=== PATIENT | female | born 1940 | race American Indian/Alaskan Native ===

== ENCOUNTER 2020-08-23 08:54 | Inpatient (IN) | payer MEDICARE ==
[2020-08-23 10:45] LABS: Basophils # (Auto) 0.1 K/mm3 (0.0-0.1); Basophils % (Auto) 0.8 % (0.0-1.8); Hemoglobin 10.5 gm/dl (10.1-14.3); Lymphocytes # (Auto) 1.2 K/mm3 (1.2-5.4); Lymphocytes % (Auto) 9.2 % (13.4-35.0); Mean Corpuscular HGB Conc 33 % (30-34); Mean Corpuscular Volume 91 fl (79-97); Monocytes # (Auto) 0.9 K/mm3 (0.0-0.8); Monocytes % (Auto) 6.8 % (0.0-7.3); Platelet Count 276 K/mm3 (140-440); Red Blood Count 3.52 M/mm3 (3.65-5.03); Red Cell Distribution Width 14.7 % (13.2-15.2)
[2020-08-23 10:49] LABS: Alanine Aminotransferase 13 units/L (7-56); Albumin 3.4 g/dL (3.9-5); BUN/Creatinine Ratio 19; Blood Urea Nitrogen 19 mg/dL (7-17); Calcium 8.5 mg/dL (8.4-10.2); Hemolysis Index 9
[2020-08-23 11:00] LABS: HDL Cholesterol 48 mg/dL (40-59); LDL Cholesterol,Direct 62 mg/dL (50-130)
--- NOTE | 2020-08-23 11:23 | Cat Scan Report ---
CT HEAD WITHOUT CONTRAST INDICATION / CLINICAL INFORMATION: fall altered mental status. TECHNIQUE: Axial imaging performed from the skull apex through the skull base without the use of cont rast. Sagittal and coronal reformatted images. All CT scans at this location are performed using CT dose reduction for ALARA by means of automated exposure control. COMPARISON: None available. FINDINGS: CEREBRAL PARENCHYMA: Mild diffuse volume loss and mild to moderate chronic white matter changes are n oted. No acute parenchymal abnormality is appreciated. Chronic focal infarct in the right subinsular region measures 2.2 x 0.7 cm. Chronic infarct in the medial right occipital lobe measures 3.0 x 1.7 c m. HEMORRHAGE: None. EXTRA-AXIAL SPACES: Normal in size and morphology for the patient's age. VENTRICULAR SYSTEM: Normal in size and morphology for the patient's age. MIDLINE SHIFT OR HERNIATION: None. CEREBELLUM / BRAINSTEM: No significant abnormality. CALVARIUM: No significant abnormality. ORBITS: Normal as visualized. PARANASAL SINUSES / MASTOID AIR CELLS: Normal as visualized. SOFT TISSUES of HEAD: No significant abnormality. ADDITIONAL FINDINGS: None. IMPRESSION: No acute intracranial abnormality. Volume loss and chronic white matter changes. 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 Signer Name: Med Pedersen Jr, MD Signed: 08/23/2020 11:19 AM Workstation Name: [id number]
[2020-08-23] MEDS ORDERED: ACETAMINOPHEN 325 MG TAB ONE (11:35)
[2020-08-23] MEDS ORDERED: ACETAMINOPHEN 325 MG TAB PO ONE (11:41)
--- NOTE | 2020-08-23 11:47 | XRay Report ---
CHEST 1 VIEW INDICATION: fever hypoxia. COMPARISON: None FINDINGS: Support devices: None. Heart: Borderline to mild cardiomegaly Lungs/Pleura: Mild airspace opacity is identified throughout the right lung and left lower lobe. This could represent infiltrates or congestive changes. No large pleural effusion or pneumothorax. Additional findings: None. IMPRESSION: Borderline to mild cardiomegaly. Bilateral congestive changes or infiltrates as described. Viral inf ection is not excluded. Signer Name: Med Pedersen Jr, MD Signed: 08/23/2020 11:42 AM Workstation Name: [id number]
[2020-08-23 11:53] LABS: Bacteria,Urine 1+ /HPF (Negative); Bilirubin,Urine NEG (Negative); Blood,Urine NEG (Negative); Color,Urine Yellow (Yellow); Mucus,Urine FEW /HPF
--- NOTE | 2020-08-23 11:56 | Cat Scan Report ---
CT CERVICAL SPINE WITHOUT CONTRAST INDICATION / CLINICAL INFORMATION: Patient fell sustaining neck injury. Altered mental status. TECHNIQUE: Axial CT images were obtained through the cervical spine. Sagittal and coronal reformatted images wer e produced. All CT scans at this location are performed using CT dose reduction for ALARA by means of automated exposure control. COMPARISON: None available. FINDINGS: ALIGNMENT: There is a mild rightward curvature of the cervical spine without definite scoliosis. Loss of the normal cervical lordosis is noted. There is no indication of traumatic subluxation. VERTEBRAE: No evidence of fracture. Prominent anterior osteophyte formation is observed at the C5, C6 and C7 vertebrae. Milder posterior osteophyte formation is also observed at the same levels. DISC SPACES: Loss of disc height is demonstrated at the C5-6 and C6-7 levels. DEGENERATIVE CHANGES: Mild loss of disc height, anterior osteophyte formation, mild posterior osteoph yte formation and right worse than left uncovertebral arthropathy are observed at the C5-6 and C6-7 l evels. Bilateral neuroforaminal narrowing is seen at these locations. Central spinal canal is adequat kathryn maintained. CRANIOCERVICAL JUNCTION:No significant abnormality. SPINAL CANAL: Central spinal canal is adequately maintained throughout. PARASPINAL SOFT TISSUES: No significant abnormality. ADDITIONAL FINDINGS: None. LUNG APICES: Lung apices are largely excluded from this study. IMPRESSION: 1. No indication of fracture or traumatic subluxation. 2. Degenerative changes at C5-6 and C6-7 levels as described above. Signer Name: Bhupendra Fuller MD Signed: 08/23/2020 11:52 AM Workstation Name: [email or web address]
--- NOTE | 2020-08-23 12:16 | Cat Scan Report ---
CT CHEST WITHOUT CONTRAST INDICATION / CLINICAL INFORMATION: fever hypoxia. TECHNIQUE: Axial CT images were obtained through the chest without contrast. All CT scans at this location are p erformed using CT dose reduction for ALARA by means of automated exposure control. COMPARISON: Chest radiograph from same day. FINDINGS: THORACIC AORTA: Mild atherosclerotic calcification without acute abnormality. HEART: The heart is enlarged. No pericardial effusion. Coronary artery calcifications. MEDIASTINUM / OBDULIO: Evaluation for hilar adenopathy is limited without venous contrast. Scattered mil dly enlarged mediastinal lymph nodes are likely reactive. LUNGS/PLEURA: There are small bilateral pleural effusions with dense bilateral airspace consolidation s, slightly more pronounced on the right. There is diffuse interlobular septal thickening. No pneumot horax. ADDITIONAL CHEST FINDINGS: None. UPPER ABDOMEN: No significant abnormality. SKELETAL SYSTEM: Incidentally, there is a 2.3 x 1.5 cm geographic lytic lesion within the anterior pa rasymphyseal mandible, just to the left of midline. This is incompletely imaged on current study. IMPRESSION: 1. Findings most compatible with CHF/fluid overload with pulmonary edema and small bilateral pleural effusions. Superimposed pneumonia is unable to be excluded. 2. Incidentally noted 2.3 cm lytic lesion within the anterior mandible. This is incompletely imaged a nd may represent a dentigerous cyst. Recommend comparison to outside imaging to assess stability of t his finding. If no prior imaging is available for comparison, consider further evaluation with MRI. Signer Name: Yousif Dorsey MD Signed: 08/23/2020 12:11 PM Workstation Name: [id number]
--- NOTE | 2020-08-23 12:53 | Emergency Department Report ---
ED Altered Mental Status HPI - General Chief Complaint: Altered Mental Status Stated Complaint: STROKE PUI?: Yes Time Seen by Provider: 08/23/20 09:21 Source: family (daughter bedside), EMS, old records reviewed Mode of arrival: Stretcher Limitations: Other - History of Present Illness Initial Comments: CC: altered mental status HPI: This is a 80 yo female with hx of dementia, TIA, breast cancer in remission who presents with low oxygen saturation at home, as well as, altered mental status. On Friday, 4 days prior, patient fell in shower. No notable head trauma according to daughter who is bedside. Yesterday, patient has low grade fever and work of breathing. Home pulse oximetry machine read low. PCP ordered oxygen to be delivered to the home. Upon EMS arrival this morning, patient was altered. Slight right facial droop noticed by daughter. Patient was altered. She was less talkative. Appeared to have slurred speech. EMS did not detect facial droop or extremity weakness. Pulse oximetry measured to be profoundly hypoxic at 36% on room air according to EMS. MD Complaint: altered mental status, confusion -: days(s) (Fever hypoxia beginning yesterday), This morning (Altered mental status began this morning) Severity: severe Consistency of Symptoms: waxing and waning Context: recent fever Associated Symptoms: other (Hard to obtain due to dementia) - Related Data Home Medications Medication Instructions Recorded Confirmed Last Taken Amlodipine Besylate [Norvasc] 10 mg PO DAILY 08/23/20 08/23/20 Unknown Anastrozole 1 mg PO DAILY 08/23/20 08/23/20 Unknown AtorvaSTATin [Lipitor] 20 mg PO DAILY 08/23/20 08/23/20 Unknown Clopidogrel [Plavix] 75 mg PO DAILY 08/23/20 08/23/20 Unknown Fluticasone/Vilanterol [Breo 1 spray IH Q4HR 08/23/20 08/23/20 Unknown Ellipta 100-25 Mcg INH] Losartan Potassium 25 mg PO DAILY 08/23/20 08/23/20 Unknown Memantine HCl 10 mg PO BID 08/23/20 08/23/20 Unknown Metformin HCl [Glucophage Xr] 500 mg PO BID 08/23/20 08/23/20 Unknown Quetiapine Fumarate [SEROquel XR] 25 mg PO QDAY 08/23/20 08/23/20 Unknown Tramadol HCl 50 mg PO Q4H PRN 08/23/20 08/23/20 Unknown Allergies Allergy/AdvReac Type Severity Reaction Status Date / Time No Known Allergies Allergy Verified 08/23/20 09:25 ED Review of Systems ROS: Stated complaint: STROKE Other details as noted in HPI Comment: Unobtainable due to pts medical conditions (Unobtainable due to acute altered mental status and dementia) ED Past Medical Hx - Past Medical History Previous Medical History?: Yes Hx Hypertension: Yes (FOR 10 YRS, DR. HAMILTON- PCP) Hx Diabetes: Yes (FOR 1 YR) Hx of Cancer: Yes (breast) Hx Sickle Cell Disease: No Hx Arthritis: Yes (IN KNEES) Hx HIV: No - Surgical History Hx Breast Surgery: Yes (LEFT BREAST BX 07/2016) - Social History Smoking Status: Never Smoker Substance Use Type: None - Medications Home Medications: Home Medications Medication Instructions Recorded Confirmed Last Taken Type Amlodipine Besylate [Norvasc] 10 mg PO DAILY 08/23/20 08/23/20 Unknown History Anastrozole 1 mg PO DAILY 08/23/20 08/23/20 Unknown History AtorvaSTATin [Lipitor] 20 mg PO DAILY 08/23/20 08/23/20 Unknown History Clopidogrel [Plavix] 75 mg PO DAILY 08/23/20 08/23/20 Unknown History Fluticasone/Vilanterol [Breo 1 spray IH Q4HR 08/23/20 08/23/20 Unknown History Ellipta 100-25 Mcg INH] Losartan Potassium 25 mg PO DAILY 08/23/20 08/23/20 Unknown History Memantine HCl 10 mg PO BID 08/23/20 08/23/20 Unknown History Metformin HCl [Glucophage Xr] 500 mg PO BID 08/23/20 08/23/20 Unknown History Quetiapine Fumarate [SEROquel XR] 25 mg PO QDAY 08/23/20 08/23/20 Unknown History Tramadol HCl 50 mg PO Q4H PRN 08/23/20 08/23/20 Unknown History ED Physical Exam - General Limitations: Other General appearance: alert, in no apparent distress, other (Patient will make eye contact, she is moving all 4 extremities, she would not speak or follow instructions) - Head Head exam: Present: atraumatic, normocephalic - Eye Eye exam: Present: normal appearance - ENT ENT exam: Present: mucous membranes dry, other (No oropharyngeal lesions or edema) - Neck Neck exam: Present: normal inspection, full ROM - Respiratory Respiratory exam: Present: decreased breath sounds, other (Mild work of breathing, breathing 35 breaths/min). Absent: wheezes, rales, rhonchi, accessory muscle use - Cardiovascular Cardiovascular Exam: Present: normal rhythm, tachycardia, normal heart sounds. Absent: systolic murmur, diastolic murmur, rubs, gallop - GI/Abdominal GI/Abdominal exam: Present: soft, normal bowel sounds. Absent: distended, tenderness, guarding, rebound - Extremities Exam Extremities exam: Present: normal inspection - Neurological Exam Neurological exam: Present: altered, other (Patient will make eye contact but she would not speak. She moves all 4 extremities briskly especially with IV attempt) - Psychiatric Psychiatric exam: Present: normal mood, flat affect - Skin Skin exam: Present: warm, dry, intact, normal color, other (Warm to touch). Absent: rash ED Course Vital Signs 08/23/20 08/23/20 08/23/20 09:09 09:15 09:16 Temperature 97.4 F L Pulse Rate 78 98 H Respiratory 22 14 Rate Blood Pressure 133/88 132/78 133/88 O2 Sat by Pulse 100 92 Oximetry 08/23/20 08/23/20 08/23/20 09:30 09:45 10:01 Temperature Pulse Rate 99 H 95 H 97 H Respiratory 13 40 H 30 H Rate Blood Pressure 127/68 127/68 127/68 O2 Sat by Pulse 82 L 100 75 L Oximetry 08/23/20 08/23/20 08/23/20 10:15 10:31 10:45 Temperature Pulse Rate 98 H 100 H 98 H Respiratory 14 37 H 23 Rate Blood Pressure 127/68 127/68 127/68 O2 Sat by Pulse 92 91 92 Oximetry 08/23/20 08/23/20 08/23/20 11:11 11:15 11:30 Temperature 102.6 F H Pulse Rate 102 H 99 H Respiratory 22 32 H Rate Blood Pressure 127/68 127/68 O2 Sat by Pulse 82 L 90 Oximetry 08/23/20 08/23/20 08/23/20 11:31 11:45 12:01 Temperature Pulse Rate 99 H 96 H 101 H Respiratory 30 H 33 H 19 Rate Blood Pressure 127/68 127/68 127/68 O2 Sat by Pulse 92 91 80 L Oximetry 08/23/20 08/23/20 12:15 12:31 Temperature Pulse Rate 92 H Respiratory 15 Rate Blood Pressure 127/68 127/68 O2 Sat by Pulse 87 92 Oximetry - Lab Data Result diagrams: 08/23/20 10:17 08/23/20 10:17 Lab Results 08/23/20 08/23/20 08/23/20 Range/Units 10:17 10:17 10:17 WBC 13.1 H (4.5-11.0) K/mm3 RBC 3.52 L (3.65-5.03) M/mm3 Hgb 10.5 (10.1-14.3) gm/dl Hct 32.0 (30.3-42.9) % MCV 91 (79-97) fl MCH 30 (28-32) pg MCHC 33 (30-34) % RDW 14.7 (13.2-15.2) % Plt Count 276 (140-440) K/mm3 Lymph % (Auto) 9.2 L (13.4-35.0) % [place] % (Auto) 6.8 (0.0-7.3) % Eos % (Auto) 0.0 (0.0-4.3) % Baso % (Auto) 0.8 (0.0-1.8) % Lymph # (Auto) 1.2 (1.2-5.4) K/mm3 [place] # (Auto) 0.9 H (0.0-0.8) K/mm3 Eos # (Auto) 0.0 (0.0-0.4) K/mm3 Baso # (Auto) 0.1 (0.0-0.1) K/mm3 Seg Neutrophils % 83.2 H (40.0-70.0) % Seg Neutrophils # 10.9 H (1.8-7.7) K/mm3 Sodium 138 (137-145) mmol/L Potassium 3.0 L (3.6-5.0) mmol/L Chloride 99.4 (98-107) mmol/L Carbon Dioxide 26 (22-30) mmol/L Anion Gap 16 mmol/L BUN 19 H (7-17) mg/dL Creatinine 1.0 (0.6-1.2) mg/dL Estimated GFR > 60 ml/min BUN/Creatinine Ratio 19 % Glucose 173 H (65-100) mg/dL Lactic Acid 2.20 H* (0.7-2.0) mmol/L Calcium 8.5 (8.4-10.2) mg/dL Ferritin (10.0-200.0) ng/mL Total Bilirubin 1.30 H (0.1-1.2) mg/dL AST 25 (5-40) units/L ALT 13 (7-56) units/L Alkaline Phosphatase 65 (35-129) units/L Lactate Dehydrogenase (91-180) units/L Troponin T 0.048 H (0.00-0.029) ng/mL C-Reactive Protein (0.00-1.30) mg/dL Total Protein 6.7 (6.3-8.2) g/dL Albumin 3.4 L (3.9-5) g/dL Albumin/Globulin Ratio 1.0 % Triglycerides 72 (2-149) mg/dL Cholesterol 120 (50-199) mg/dL LDL Cholesterol Direct 62 (50-130) mg/dL HDL Cholesterol 48 (40-59) mg/dL Cholesterol/HDL Ratio 2.50 % Procalcitonin (<0.15) ng/mL Urine Color (Yellow) Urine Turbidity (Clear) Urine pH (5.0-7.0) Ur Specific [place] (1.003-1.030) Urine Protein (Negative) mg/dL Urine Glucose (UA) (Negative) mg/dL Urine Ketones (Negative) mg/dL Urine Blood (Negative) Urine Nitrite (Negative) Urine Bilirubin (Negative) Urine Urobilinogen (<2.0) mg/dL Ur Leukocyte Esterase (Negative) Urine WBC (Auto) (0.0-6.0) /HPF Urine RBC (Auto) (0.0-6.0) /HPF Urine Bacteria (Auto) (Negative) /HPF Urine Mucus /HPF 08/23/20 08/23/20 08/23/20 Range/Units 10:17 10:17 10:17 WBC (4.5-11.0) K/mm3 RBC (3.65-5.03) M/mm3 Hgb (10.1-14.3) gm/dl Hct (30.3-42.9) % MCV (79-97) fl MCH (28-32) pg MCHC (30-34) % RDW (13.2-15.2) % Plt Count (140-440) K/mm3 Lymph % (Auto) (13.4-35.0) % [place] % (Auto) (0.0-7.3) % Eos % (Auto) (0.0-4.3) % Baso % (Auto) (0.0-1.8) % Lymph # (Auto) (1.2-5.4) K/mm3 [place] # (Auto) (0.0-0.8) K/mm3 Eos # (Auto) (0.0-0.4) K/mm3 Baso # (Auto) (0.0-0.1) K/mm3 Seg Neutrophils % (40.0-70.0) % Seg Neutrophils # (1.8-7.7) K/mm3 Sodium (137-145) mmol/L Potassium (3.6-5.0) mmol/L Chloride (98-107) mmol/L Carbon Dioxide (22-30) mmol/L Anion Gap mmol/L BUN (7-17) mg/dL Creatinine (0.6-1.2) mg/dL Estimated GFR ml/min BUN/Creatinine Ratio % Glucose (65-100) mg/dL Lactic Acid (0.7-2.0) mmol/L Calcium (8.4-10.2) mg/dL Ferritin 207.0 H (10.0-200.0) ng/mL Total Bilirubin (0.1-1.2) mg/dL AST (5-40) units/L ALT (7-56) units/L Alkaline Phosphatase (35-129) units/L Lactate Dehydrogenase 338 H (91-180) units/L Troponin T (0.00-0.029) ng/mL C-Reactive Protein 8.00 H (0.00-1.30) mg/dL Total Protein (6.3-8.2) g/dL Albumin (3.9-5) g/dL Albumin/Globulin Ratio % Triglycerides (2-149) mg/dL Cholesterol (50-199) mg/dL LDL Cholesterol Direct (50-130) mg/dL HDL Cholesterol (40-59) mg/dL Cholesterol/HDL Ratio % Procalcitonin 0.16 (<0.15) ng/mL Urine Color (Yellow) Urine Turbidity (Clear) Urine pH (5.0-7.0) Ur Specific [place] (1.003-1.030) Urine Protein (Negative) mg/dL Urine Glucose (UA) (Negative) mg/dL Urine Ketones (Negative) mg/dL Urine Blood (Negative) Urine Nitrite (Negative) Urine Bilirubin (Negative) Urine Urobilinogen (<2.0) mg/dL Ur Leukocyte Esterase (Negative) Urine WBC (Auto) (0.0-6.0) /HPF Urine RBC (Auto) (0.0-6.0) /HPF Urine Bacteria (Auto) (Negative) /HPF Urine Mucus /HPF 08/23/20 Range/Units 11:30 WBC (4.5-11.0) K/mm3 RBC (3.65-5.03) M/mm3 Hgb (10.1-14.3) gm/dl Hct (30.3-42.9) % MCV (79-97) fl MCH (28-32) pg MCHC (30-34) % RDW (13.2-15.2) % Plt Count (140-440) K/mm3 Lymph % (Auto) (13.4-35.0) % [place] % (Auto) (0.0-7.3) % Eos % (Auto) (0.0-4.3) % Baso % (Auto) (0.0-1.8) % Lymph # (Auto) (1.2-5.4) K/mm3 [place] # (Auto) (0.0-0.8) K/mm3 Eos # (Auto) (0.0-0.4) K/mm3 Baso # (Auto) (0.0-0.1) K/mm3 Seg Neutrophils % (40.0-70.0) % Seg Neutrophils # (1.8-7.7) K/mm3 Sodium (137-145) mmol/L Potassium (3.6-5.0) mmol/L Chloride (98-107) mmol/L Carbon Dioxide (22-30) mmol/L Anion Gap mmol/L BUN (7-17) mg/dL Creatinine (0.6-1.2) mg/dL Estimated GFR ml/min BUN/Creatinine Ratio % Glucose (65-100) mg/dL Lactic Acid (0.7-2.0) mmol/L Calcium (8.4-10.2) mg/dL Ferritin (10.0-200.0) ng/mL Total Bilirubin (0.1-1.2) mg/dL AST (5-40) units/L ALT (7-56) units/L Alkaline Phosphatase (35-129) units/L Lactate Dehydrogenase (91-180) units/L Troponin T (0.00-0.029) ng/mL C-Reactive Protein (0.00-1.30) mg/dL Total Protein (6.3-8.2) g/dL Albumin (3.9-5) g/dL Albumin/Globulin Ratio % Triglycerides (2-149) mg/dL Cholesterol (50-199) mg/dL LDL Cholesterol Direct (50-130) mg/dL HDL Cholesterol (40-59) mg/dL Cholesterol/HDL Ratio % Procalcitonin (<0.15) ng/mL Urine Color Yellow (Yellow) Urine Turbidity Clear (Clear) Urine pH 5.0 (5.0-7.0) Ur Specific [place] 1.025 (1.003-1.030) Urine Protein 100 mg/dl (Negative) mg/dL Urine Glucose (UA) Neg (Negative) mg/dL Urine Ketones Neg (Negative) mg/dL Urine Blood Neg (Negative) Urine Nitrite Neg (Negative) Urine Bilirubin Neg (Negative) Urine Urobilinogen 2.0 (<2.0) mg/dL Ur Leukocyte Esterase Tr (Negative) Urine WBC (Auto) 1.0 (0.0-6.0) /HPF Urine RBC (Auto) 3.0 (0.0-6.0) /HPF Urine Bacteria (Auto) 1+ (Negative) /HPF Urine Mucus Few /HPF - Radiology Data Radiology results: report reviewed, image reviewed CT head chronic changes without acute process, CT cervical spine no acute traumatic injury CT chest: Diffuse airspace disease edema versus infection AP portable chest radiograph according to my interpretation: Right-sided predominance of large infiltrative process with left lower lobe infiltrate - Medical Decision Making Ms. Womack is a 80-year-old female presents with fever rectal temp 102.6 Fahrenheit here in emergency department as well as severe hypoxia 75% on room air. Patient has significant infiltrative airspace disease on chest radiograph and CT chest indicative of multifocal pneumonia. Patient is tolerating Venturi mask at this time. She received antibiotics in emergency department. COVID-19 precautions instituted. Viral versus bacterial infections are both being considered. Patient likely has underlying lung disease such as COPD. BREO is included on her medication list. I suspect patient's abdominal status is due to acute delirium caused by infection and hypoxia. I do not suspect acute CVA. Critical care attestation.: If time is entered above; I have spent that time in minutes in the direct care of this critically ill patient, excluding procedure time. ED Disposition Clinical Impression: Acute respiratory failure with hypoxia, Multifocal pneumonia, Suspected COVID- 19 virus infection Disposition: OP ADMIT IP TO THIS HOSP Is pt being admited?: Yes Does the pt Need Aspirin: No Condition: Stable Instructions: Bacterial Pneumonia (ED)
--- NOTE | 2020-08-23 13:51 | History and Physical Report ---
History of Present Illness Chief complaint: She is getting weaker and her oxygen level was low History of present illness: 80 YO Female with Obesity Hypoventilation Syndrome, HLD, HTN, Vascular Dementia, Cerebral Atherosclerosis, BrCa, CVA presents to ED for evaluation. The patient is confused and lethargic with diminished cognition and is unable to provide detailed history. Patient daughter who is at bedside provides detailed history. As per daughter the patient has experienced progressive weakness and confusion over the past 1 month with worsening symptoms over the past 1 week. Patient has decreased mobility, and increased bedbound status. Patient has gait instability due to lower extremity weakness which resulted in a fall on Friday. Patient has a palliative performance score of 40% and requires 5/6 assistance with activities of daily living. Patient was found to have a pulse oximetry in the 80s this morning. EMS was notified and upon arrival the patient was found to be in distress. Patient placed on supplemental oxygen and transported to [facility] for further care and evaluation of the aforementioned symptoms. Patient seen and evaluated in the emergency department. All lab and imaging studies reviewed. Patient found to have a pulse oximetry of 70% on room air which is consistent with acute hypoxemic respiratory failure. Patient also found to have a chest x- ray with bilateral pneumonia which is complicated by systemic inflammatory response syndrome. Patient initiated on pneumonia protocol as well as coronavirus protocol while in the emergency department. Patient admitted to medical floor and initiated on pneumonia protocol as well as coronavirus protocol. No further history is obtainable. Patient remains confused and lethargic at the time of my evaluation but the patient has a positive gag reflex and is able to protect her airway without difficulty. Advanced care planning conducted in ED. Past History Past Medical History: cancer, hypertension, hyperlipidemia, stroke Past Surgical History: Other (Breast surgery) Social history: . denies: smoking, alcohol abuse, prescription drug abuse Family history: hypertension Medications and Allergies Allergies Allergy/AdvReac Type Severity Reaction Status Date / Time No Known Allergies Allergy Verified 08/23/20 09:25 Home Medications Medication Instructions Recorded Confirmed Last Taken Type Amlodipine Besylate [Norvasc] 10 mg PO DAILY 08/23/20 08/23/20 Unknown History Anastrozole 1 mg PO DAILY 08/23/20 08/23/20 Unknown History AtorvaSTATin [Lipitor] 20 mg PO DAILY 08/23/20 08/23/20 Unknown History Clopidogrel [Plavix] 75 mg PO DAILY 08/23/20 08/23/20 Unknown History Fluticasone/Vilanterol [Breo 1 spray IH Q4HR 08/23/20 08/23/20 Unknown History Ellipta 100-25 Mcg INH] Losartan Potassium 25 mg PO DAILY 08/23/20 08/23/20 Unknown History Memantine HCl 10 mg PO BID 08/23/20 08/23/20 Unknown History Metformin HCl [Glucophage Xr] 500 mg PO BID 08/23/20 08/23/20 Unknown History Quetiapine Fumarate [SEROquel XR] 25 mg PO QDAY 08/23/20 08/23/20 Unknown History Tramadol HCl 50 mg PO Q4H PRN 08/23/20 08/23/20 Unknown History Review of Systems ROS unobtainable: due to mental status Exam - Constitutional Vitals: Temp Pulse Resp BP Pulse Ox 102.6 F H 88 21 127/68 94 08/23/20 11:30 08/23/20 13:01 08/23/20 13:01 08/23/20 13:01 08/23/20 13:01 General appearance: Present: mild distress - EENT Eyes: Present: PERRL ENT: clear oral mucosa, hearing decreased - Neck Neck: Present: supple, normal ROM - Respiratory Respiratory effort: labored, accessory muscle use, stridor Respiratory: bilateral: diminished, rhonchi - Cardiovascular Heart Sounds: Present: S1 & S2. Absent: rub, click - Extremities Extremities: pulses symmetrical, No edema Peripheral Pulses: within normal limits - Abdominal General gastrointestinal: Present: soft, non-tender, non-distended, normal bowel sounds Female genitourinary: Present: normal - Integumentary Integumentary: Present: clear, warm, dry, clammy, decreased turgor - Musculoskeletal Musculoskeletal: generalized weakness - Psychiatric Psychiatric: no appropriate mood/affect, no intact judgment & insight, no memory intact - Neurologic Neurologic: CNII-XII intact, moves all extremities, no gait normal HEART Score - HEART Score Troponin: Troponin T 0.048 ng/mL (0.00-0.029) H 08/23/20 10:17 Results - Labs CBC & Chem 7: 08/23/20 10:17 08/23/20 10:17 Labs: Abnormal lab results 08/23/20 08/23/20 08/23/20 Range/Units 10:17 10:17 10:17 WBC 13.1 H (4.5-11.0) K/mm3 RBC 3.52 L (3.65-5.03) M/mm3 Lymph % (Auto) 9.2 L (13.4-35.0) % [place] # (Auto) 0.9 H (0.0-0.8) K/mm3 Seg Neutrophils % 83.2 H (40.0-70.0) % Seg Neutrophils # 10.9 H (1.8-7.7) K/mm3 D-Dimer (0-234) ng/mlDDU Potassium 3.0 L (3.6-5.0) mmol/L BUN 19 H (7-17) mg/dL Glucose 173 H (65-100) mg/dL Lactic Acid 2.20 H* (0.7-2.0) mmol/L Ferritin (10.0-200.0) ng/mL Total Bilirubin 1.30 H (0.1-1.2) mg/dL Lactate Dehydrogenase (91-180) units/L Troponin T 0.048 H (0.00-0.029) ng/mL C-Reactive Protein (0.00-1.30) mg/dL NT-Pro-B Natriuret Pep (0-900) pg/mL Albumin 3.4 L (3.9-5) g/dL 08/23/20 08/23/20 08/23/20 Range/Units 10:17 10:17 12:41 WBC (4.5-11.0) K/mm3 RBC (3.65-5.03) M/mm3 Lymph % (Auto) (13.4-35.0) % [place] # (Auto) (0.0-0.8) K/mm3 Seg Neutrophils % (40.0-70.0) % Seg Neutrophils # (1.8-7.7) K/mm3 D-Dimer 1485.80 H (0-234) ng/mlDDU Potassium (3.6-5.0) mmol/L BUN (7-17) mg/dL Glucose (65-100) mg/dL Lactic Acid (0.7-2.0) mmol/L Ferritin 207.0 H (10.0-200.0) ng/mL Total Bilirubin (0.1-1.2) mg/dL Lactate Dehydrogenase 338 H (91-180) units/L Troponin T (0.00-0.029) ng/mL C-Reactive Protein 8.00 H (0.00-1.30) mg/dL NT-Pro-B Natriuret Pep (0-900) pg/mL Albumin (3.9-5) g/dL 08/23/20 Range/Units 12:52 WBC (4.5-11.0) K/mm3 RBC (3.65-5.03) M/mm3 Lymph % (Auto) (13.4-35.0) % [place] # (Auto) (0.0-0.8) K/mm3 Seg Neutrophils % (40.0-70.0) % Seg Neutrophils # (1.8-7.7) K/mm3 D-Dimer (0-234) ng/mlDDU Potassium (3.6-5.0) mmol/L BUN (7-17) mg/dL Glucose (65-100) mg/dL Lactic Acid (0.7-2.0) mmol/L Ferritin (10.0-200.0) ng/mL Total Bilirubin (0.1-1.2) mg/dL Lactate Dehydrogenase (91-180) units/L Troponin T (0.00-0.029) ng/mL C-Reactive Protein (0.00-1.30) mg/dL NT-Pro-B Natriuret Pep 8422 H (0-900) pg/mL Albumin (3.9-5) g/dL Assessment and Plan - Patient Problems (1) Acute respiratory failure with hypoxia Current Visit: Yes Status: Acute Plan to address problem: Chest x-ray, supplemental oxygen, nebulizer therapy, pulse oximetry, pulmonary toilet, (2) Multifocal pneumonia Current Visit: Yes Status: Acute Plan to address problem: Pneumonia protocol: Chest x-ray, CBC, CMP, IV antibiotic therapy, nebulizer therapy, pulse oximetry, (3) Systemic inflammatory response syndrome Current Visit: Yes Status: Acute Plan to address problem: CBC, CMP, IV antibiotic therapy, supportive care, repeat CBC in a.m. (4) Suspected COVID-19 virus infection Current Visit: Yes Status: Acute Plan to address problem: Coronavirus protocol: Coronavirus PCR ordered and is pending at time of admission, isolation precautions, contact precautions, IV steroid therapy, IV antibiotic therapy, supportive care. (5) DVT prophylaxis Current Visit: Yes Status: Acute Plan to address problem: SCD to bilateral lower extremities while in bed, prophylactic heparin (6) Advance care planning Current Visit: Yes Status: Acute Plan to address problem: Disease education conducted, prognosis discussed, patient is full code, care plan discussed, patient daughter acknowledges understanding and agreement with care plan, +30 minutes.
[2020-08-23] MEDS: methylPREDNISolone Sod Succinate 40 MG/1 ML INJ IV SCH ×2 (14:11→23:00)
[2020-08-23] MEDS ORDERED: ONDANSETRON 4 MG/2 ML INJ IV PRN (14:30)
[2020-08-23] MEDS ORDERED: ACETAMINOPHEN 325 MG TAB PO PRN (15:00)
[2020-08-23] MEDS: AZITHROMYCIN 500 MG in SODIUM CHLORIDE 0.9% 250ML 250 ML IV SCH (15:43)
[2020-08-23] MEDS ORDERED: ALBUTEROL 2.5 MG/3 ML NEBU IH PRN (16:00)
[2020-08-23] MEDS ORDERED: HEPARIN 5,000 UNIT/1 ML VIAL ONE (22:31)
[2020-08-23] MEDS ORDERED: methylPREDNISolone Sod Succinate 125 MG/2 ML INJ ONE (22:32)
[2020-08-23] MEDS: HEPARIN 5,000 UNIT/1 ML VIAL SUB-Q SCH (23:00)
[2020-08-24] MEDS: MEMANTINE 10 MG TAB PO SCH ×3 (01:00→21:33)
[2020-08-24] MEDS ORDERED: methylPREDNISolone Sod Succinate 125 MG/2 ML INJ ONE (05:54)
[2020-08-24] MEDS: methylPREDNISolone Sod Succinate 40 MG/1 ML INJ IV SCH ×3 (06:00→21:33)
[2020-08-24 06:04] LABS: Basophils % (Auto) 0.3 % (0.0-1.8); Hematocrit 31.2 % (30.3-42.9); Hemoglobin 10.4 gm/dl (10.1-14.3); Lymphocytes # (Auto) 0.9 K/mm3 (1.2-5.4); Mean Corpuscular HGB Conc 33 % (30-34); Mean Corpuscular Volume 91 fl (79-97); Monocytes # (Auto) 0.2 K/mm3 (0.0-0.8); Monocytes % (Auto) 1.7 % (0.0-7.3); Platelet Count 260 K/mm3 (140-440); Red Blood Count 3.45 M/mm3 (3.65-5.03); Red Cell Distribution Width 14.2 % (13.2-15.2)
[2020-08-24 06:23] LABS: Alanine Aminotransferase 12 units/L (7-56); Albumin 3.5 g/dL (3.9-5); BUN/Creatinine Ratio 22; Blood Urea Nitrogen 20 mg/dL (7-17); Calcium 8.3 mg/dL (8.4-10.2); Hemolysis Index 7
[2020-08-24] MEDS: HEPARIN 5,000 UNIT/1 ML VIAL SUB-Q SCH ×2 (13:10→21:35)
--- NOTE | 2020-08-24 13:26 | Progress Note ---
Assessment and Plan Assessment and plan: -- Acute respiratory failure with hypoxia Current Visit: Yes Status: Acute Plan to address problem: Patient titrate O2 sats to more than 90% Supportive care -- Multifocal pneumonia Current Visit: Yes Status: Acute Plan to address problem: Empiric antibiotics with Rocephin and Zithromax Follow cultures, supportive care --Systemic inflammatory response syndrome Current Visit: Yes Status: Acute Plan to address problem: Follow cultures empiric antibiotics --PUI suspected COVID-19 virus infection Current Visit: Yes Status: Acute Plan to address problem: Contact and droplet isolation Follow mars PCR, inflammatory markers --DVT prophylaxis Current Visit: Yes Status: Acute Plan to address problem: SCD to bilateral lower extremities while in bed, prophylactic heparin --Full CODE STATUS Current Visit: Yes Status: Acute Plan to address problem: Plan of care reviewed with the patient and her nurse History Interval history: I have seen and examined the patient in isolation room at the bedside today Isolation precautions, PPE protocols strictly observed Patient PUI, high suspicion for Covid Complains of generalized weakness Patient is confused and obese Vital signs noted, max last 24 hours 102.6 F Mild distress Hospitalist Physical - Constitutional Vitals: Temp Pulse Resp BP Pulse Ox 97.9 F 82 13 141/73 96 08/24/20 07:34 08/24/20 07:34 08/24/20 07:34 08/24/20 07:34 08/24/20 07:34 General appearance: Present: mild distress, well-nourished, obese - EENT Eyes: Present: PERRL, EOM intact - Neck Neck: Present: supple, normal ROM - Respiratory Respiratory effort: normal Respiratory: bilateral: diminished, rhonchi, negative: rales, wheezing - Cardiovascular Rhythm: regular Heart Sounds: Present: S1 & S2 - Extremities Extremities: no ischemia, No edema - Abdominal General gastrointestinal: soft, non-tender, non-distended, normal bowel sounds - Integumentary Integumentary: Present: clear, warm - Psychiatric Psychiatric: appropriate mood/affect, cooperative - Neurologic Neurologic: moves all extremities HEART Score - HEART Score Troponin: Troponin T 0.048 ng/mL (0.00-0.029) H 08/23/20 10:17 Results - Labs CBC & Chem 7: 08/24/20 05:43 08/24/20 05:43 Labs: Laboratory Last Values WBC 9.4 K/mm3 (4.5-11.0) 08/24/20 05:43 RBC 3.45 M/mm3 (3.65-5.03) L 08/24/20 05:43 Hgb 10.4 gm/dl (10.1-14.3) 08/24/20 05:43 Hct 31.2 % (30.3-42.9) 08/24/20 05:43 MCV 91 fl (79-97) 08/24/20 05:43 MCH 30 pg (28-32) 08/24/20 05:43 MCHC 33 % (30-34) 08/24/20 05:43 RDW 14.2 % (13.2-15.2) 08/24/20 05:43 Plt Count 260 K/mm3 (140-440) 08/24/20 05:43 Lymph % (Auto) 10.0 % (13.4-35.0) L 08/24/20 05:43 [place] % (Auto) 1.7 % (0.0-7.3) 08/24/20 05:43 Eos % (Auto) 0.0 % (0.0-4.3) 08/24/20 05:43 Baso % (Auto) 0.3 % (0.0-1.8) 08/24/20 05:43 Lymph # (Auto) 0.9 K/mm3 (1.2-5.4) L 08/24/20 05:43 [place] # (Auto) 0.2 K/mm3 (0.0-0.8) 08/24/20 05:43 Eos # (Auto) 0.0 K/mm3 (0.0-0.4) 08/24/20 05:43 Baso # (Auto) 0.0 K/mm3 (0.0-0.1) 08/24/20 05:43 Seg Neutrophils % 88.0 % (40.0-70.0) H 08/24/20 05:43 Seg Neutrophils # 8.3 K/mm3 (1.8-7.7) H 08/24/20 05:43 D-Dimer 1485.80 ng/mlDDU (0-234) H 08/23/20 12:41 Sodium 139 mmol/L (137-145) 08/24/20 05:43 Potassium 3.5 mmol/L (3.6-5.0) L 08/24/20 05:43 Chloride 98.5 mmol/L (98-107) 08/24/20 05:43 Carbon Dioxide 27 mmol/L (22-30) 08/24/20 05:43 Anion Gap 17 mmol/L 08/24/20 05:43 BUN 20 mg/dL (7-17) H 08/24/20 05:43 Creatinine 0.9 mg/dL (0.6-1.2) 08/24/20 05:43 Estimated GFR > 60 ml/min 08/24/20 05:43 BUN/Creatinine Ratio 22 % 08/24/20 05:43 Glucose 166 mg/dL (65-100) H 08/24/20 05:43 POC Glucose 189 mg/dL (70-105) H 08/23/20 23:11 Lactic Acid 1.40 mmol/L (0.7-2.0) 08/23/20 12:41 Calcium 8.3 mg/dL (8.4-10.2) L 08/24/20 05:43 Ferritin 207.0 ng/mL (10.0-200.0) H 08/23/20 10:17 Total Bilirubin 1.00 mg/dL (0.1-1.2) 08/24/20 05:43 AST 21 units/L (5-40) 08/24/20 05:43 ALT 12 units/L (7-56) 08/24/20 05:43 Alkaline Phosphatase 67 units/L (35-129) 08/24/20 05:43 Lactate Dehydrogenase 338 units/L (91-180) H 08/23/20 10:17 Troponin T 0.048 ng/mL (0.00-0.029) H 08/23/20 10:17 C-Reactive Protein 8.00 mg/dL (0.00-1.30) H 08/23/20 10:17 NT-Pro-B Natriuret Pep 8422 pg/mL (0-900) H 08/23/20 12:52 Total Protein 6.1 g/dL (6.3-8.2) L 08/24/20 05:43 Albumin 3.5 g/dL (3.9-5) L 08/24/20 05:43 Albumin/Globulin Ratio 1.3 % 08/24/20 05:43 Triglycerides 72 mg/dL (2-149) 08/23/20 10:17 Cholesterol 120 mg/dL (50-199) 08/23/20 10:17 LDL Cholesterol Direct 62 mg/dL (50-130) 08/23/20 10:17 HDL Cholesterol 48 mg/dL (40-59) 08/23/20 10:17 Cholesterol/HDL Ratio 2.50 % 08/23/20 10:17 Procalcitonin 0.16 ng/mL (<0.15) 08/23/20 10:17 Urine Color Yellow (Yellow) 08/23/20 11:30 Urine Turbidity Clear (Clear) 08/23/20 11:30 Urine pH 5.0 (5.0-7.0) 08/23/20 11:30 Ur Specific [place] 1.025 (1.003-1.030) 08/23/20 11:30 Urine Protein 100 mg/dl mg/dL (Negative) 08/23/20 11:30 Urine Glucose (UA) Neg mg/dL (Negative) 08/23/20 11:30 Urine Ketones Neg mg/dL (Negative) 08/23/20 11:30 Urine Blood Neg (Negative) 08/23/20 11:30 Urine Nitrite Neg (Negative) 08/23/20 11:30 Urine Bilirubin Neg (Negative) 08/23/20 11:30 Urine Urobilinogen 2.0 mg/dL (<2.0) 08/23/20 11:30 Ur Leukocyte Esterase Tr (Negative) 08/23/20 11:30 Urine WBC (Auto) 1.0 /HPF (0.0-6.0) 08/23/20 11:30 Urine RBC (Auto) 3.0 /HPF (0.0-6.0) 08/23/20 11:30 Urine Bacteria (Auto) 1+ /HPF (Negative) 08/23/20 11:30 Urine Mucus Few /HPF 08/23/20 11:30 Microbiology: Microbiology 08/23/20 10:17 Peripheral/Venous Blood Culture - Preliminary NO GROWTH AFTER 24 HOURS 08/23/20 10:17 Peripheral/Venous Blood Culture - Preliminary NO GROWTH AFTER 24 HOURS Gutierrez/IV: IV Catheter Type [Left INT / Saline Lock Antecubital] Active Medications - Current Medications Current Medications: Generic Name Dose Route Start Last Admin Trade Name Freq PRN Reason Stop Dose Admin Acetaminophen 650 mg 08/23/20 15:00 Tylenol PO Q4H PRN Pain MILD(1-3)/Fever >100.5/PATEL Albuterol 2.5 mg 08/23/20 16:00 Proventil IH Q4HRT PRN Shortness Of Breath Azithromycin 500 mg 08/25/20 10:00 Zithromax PO 08/27/20 10:01 QDAY AMBER Heparin Sodium (Porcine) 5,000 unit 08/23/20 22:00 08/24/20 13:10 Heparin SUB-Q 5,000 unit Q12HR AMBER Administration Ceftriaxone Sodium 2 gm in 100 mls @ 200 mls/hr 08/24/20 16:00 Rocephin/Ns 2 Gm/100 Ml IV Q24H AMBER Protocol Azithromycin 500 mg/ Sodium 250 mls @ 250 mls/hr 08/23/20 16:00 08/23/20 15:43 Chloride IV 08/24/20 23:00 250 mls/hr Q24H AMBER Administration Protocol Memantine 10 mg 08/23/20 23:00 08/24/20 01:00 Memantine PO 10 mg Q12HR AMBER Administration Methylprednisolone Sodium Succinate 40 mg 08/23/20 14:00 08/24/20 13:10 Solu-Medrol IV 40 mg Q8HR AMBER Administration Ondansetron HCl 4 mg 08/23/20 14:30 Zofran IV Q8H PRN Nausea And Vomiting Quetiapine Fumarate 25 mg 08/24/20 22:00 Seroquel PO QHS AMBER Sodium Chloride 10 ml 08/23/20 22:00 08/24/20 13:10 Sodium Chloride Flush Syringe 10 Ml IV 10 ml BID AMBER Administration Sodium Chloride 10 ml 08/23/20 13:51 Sodium Chloride Flush Syringe 10 Ml IV PRN PRN LINE FLUSH Trazodone HCl 50 mg 08/24/20 22:00 Desyrel PO QHS AMBER
[2020-08-24] MEDS: cefTRIAXone/NS 2 GM/100 ML 2 GM/100 ML BAG IV SCH (17:05)
[2020-08-24] MEDS: AZITHROMYCIN 500 MG in SODIUM CHLORIDE 0.9% 250ML 250 ML IV SCH (17:50)
[2020-08-24] MEDS ORDERED: dexAMETHasone 4 MG/ML VIAL IV SCH (20:20)
[2020-08-24] MEDS ORDERED: REMDESIVIR 100 MG VIAL IV ONE (20:30)
[2020-08-24] MEDS ORDERED: REMDESIVIR 200 MG in SODIUM CHLORIDE 0.9% 250ML 250 ML IV ONE (20:30)
[2020-08-24] MEDS: traZODone 50 MG TAB PO SCH (21:33)
[2020-08-24] MEDS: SODIUM CHLORIDE 0.9% 50 ML IVPB IV SCH (21:35)
[2020-08-24] MEDS: QUEtiapine 25 MG TAB PO SCH (21:55)
[2020-08-25] MEDS: methylPREDNISolone Sod Succinate 40 MG/1 ML INJ IV SCH ×3 (05:50→22:45)
[2020-08-25 08:55] LABS: C-Reactive Protein 5.5 mg/dL (0.00-1.30)
--- NOTE | 2020-08-25 09:39 | Progress Note ---
Assessment and Plan Assessment and plan: --COVID-19 test positive 04/23/2020 -- Acute respiratory failure with hypoxia Current Visit: Yes Status: Acute Plan to address problem: Secondary to multifocal pneumonia requiring high flow oxygen 35 L /50% FiO2 Titrate and wean as tolerated,Supportive care --COVID-19 multifocal pneumonia Current Visit: Yes Status: Acute Plan to address problem: Empiric antibiotics with Rocephin and Zithromax --Systemic inflammatory response syndrome Current Visit: Yes Status: Acute Plan to address problem: Follow cultures empiric antibiotics --PUI suspected COVID-19 virus infection Current Visit: Yes Status: Acute Plan to address problem: Contact and droplet isolation Continue Solu-Medrol, remdesivir Home oxygen evaluation when patient is stable Follow-up inflammatory markers --DVT prophylaxis Current Visit: Yes Status: Acute Plan to address problem: SCD /SQ heparin --Full CODE STATUS Current Visit: Yes Status: Acute Plan to address problem: Plan of care reviewed with the patient and her nurse Follow ID evaluation and recommendations. Patient is critically ill with very poor prognosis Brief history; 80-year-old female patient with multiple medical problems was admitted through emergency room with altered level of consciousness at severe weakness Fever and hypoxemia. Patient was PUI placed in isolation tested for mars PCR, positive for COVID-19 on 08/24/2020, consulted ID, started treatment per COVID- 19 protocols. Currently patient is requiring high flow oxygen, ID following, on Solu-Medrol and remdesivir, following inflammatory markers per protocol. Very poor prognosis. Follow ID recommendations History Interval history: I have seen and examined the patient at the bedside today Isolation precautions and PPE protocols strictly followed Patient is critically ill short of breath Afebrile, vital signs reviewed Hospitalist Physical - Constitutional Vitals: Temp Pulse Resp BP Pulse Ox 97.3 F L 92 H 20 170/84 91 08/25/20 06:07 08/25/20 06:07 08/25/20 06:07 08/25/20 06:07 08/25/20 06:07 General appearance: Present: mild distress, well-nourished, obese - EENT Eyes: Present: PERRL, EOM intact - Neck Neck: Present: supple, normal ROM - Respiratory Respiratory effort: normal Respiratory: bilateral: diminished, rhonchi, negative: rales, wheezing - Cardiovascular Rhythm: regular Heart Sounds: Present: S1 & S2 - Extremities Extremities: no ischemia, No edema - Abdominal General gastrointestinal: soft, non-tender, non-distended, normal bowel sounds - Integumentary Integumentary: Present: clear, warm - Psychiatric Psychiatric: appropriate mood/affect, cooperative, other (Confused at times) - Neurologic Neurologic: moves all extremities HEART Score - HEART Score Troponin: Troponin T 0.048 ng/mL (0.00-0.029) H 08/23/20 10:17 Results - Labs CBC & Chem 7: 08/24/20 05:43 08/24/20 05:43 Labs: Laboratory Last Values WBC 9.4 K/mm3 (4.5-11.0) 08/24/20 05:43 RBC 3.45 M/mm3 (3.65-5.03) L 08/24/20 05:43 Hgb 10.4 gm/dl (10.1-14.3) 08/24/20 05:43 Hct 31.2 % (30.3-42.9) 08/24/20 05:43 MCV 91 fl (79-97) 08/24/20 05:43 MCH 30 pg (28-32) 08/24/20 05:43 MCHC 33 % (30-34) 08/24/20 05:43 RDW 14.2 % (13.2-15.2) 08/24/20 05:43 Plt Count 260 K/mm3 (140-440) 08/24/20 05:43 Lymph % (Auto) 10.0 % (13.4-35.0) L 08/24/20 05:43 [place] % (Auto) 1.7 % (0.0-7.3) 08/24/20 05:43 Eos % (Auto) 0.0 % (0.0-4.3) 08/24/20 05:43 Baso % (Auto) 0.3 % (0.0-1.8) 08/24/20 05:43 Lymph # (Auto) 0.9 K/mm3 (1.2-5.4) L 08/24/20 05:43 [place] # (Auto) 0.2 K/mm3 (0.0-0.8) 08/24/20 05:43 Eos # (Auto) 0.0 K/mm3 (0.0-0.4) 08/24/20 05:43 Baso # (Auto) 0.0 K/mm3 (0.0-0.1) 08/24/20 05:43 Seg Neutrophils % 88.0 % (40.0-70.0) H 08/24/20 05:43 Seg Neutrophils # 8.3 K/mm3 (1.8-7.7) H 08/24/20 05:43 D-Dimer 1531.59 ng/mlDDU (0-234) H 08/25/20 08:05 Sodium 139 mmol/L (137-145) 08/24/20 05:43 Potassium 3.5 mmol/L (3.6-5.0) L 08/24/20 05:43 Chloride 98.5 mmol/L (98-107) 08/24/20 05:43 Carbon Dioxide 27 mmol/L (22-30) 08/24/20 05:43 Anion Gap 17 mmol/L 08/24/20 05:43 BUN 20 mg/dL (7-17) H 08/24/20 05:43 Creatinine 0.9 mg/dL (0.6-1.2) 08/24/20 05:43 Estimated GFR > 60 ml/min 08/24/20 05:43 BUN/Creatinine Ratio 22 % 08/24/20 05:43 Glucose 166 mg/dL (65-100) H 08/24/20 05:43 POC Glucose 189 mg/dL (70-105) H 08/23/20 23:11 Lactic Acid 1.40 mmol/L (0.7-2.0) 08/23/20 12:41 Calcium 8.3 mg/dL (8.4-10.2) L 08/24/20 05:43 Ferritin 282.4 ng/mL (10.0-200.0) H 08/25/20 08:05 Total Bilirubin 1.00 mg/dL (0.1-1.2) 08/24/20 05:43 AST 21 units/L (5-40) 08/24/20 05:43 ALT 12 units/L (7-56) 08/24/20 05:43 Alkaline Phosphatase 67 units/L (35-129) 08/24/20 05:43 Lactate Dehydrogenase 456 units/L (91-180) H 08/25/20 08:05 Troponin T 0.048 ng/mL (0.00-0.029) H 08/23/20 10:17 C-Reactive Protein 5.50 mg/dL (0.00-1.30) H 08/25/20 08:05 NT-Pro-B Natriuret Pep 8422 pg/mL (0-900) H 08/23/20 12:52 Total Protein 6.1 g/dL (6.3-8.2) L 08/24/20 05:43 Albumin 3.5 g/dL (3.9-5) L 08/24/20 05:43 Albumin/Globulin Ratio 1.3 % 08/24/20 05:43 Triglycerides 72 mg/dL (2-149) 08/23/20 10:17 Cholesterol 120 mg/dL (50-199) 08/23/20 10:17 LDL Cholesterol Direct 62 mg/dL (50-130) 08/23/20 10:17 HDL Cholesterol 48 mg/dL (40-59) 08/23/20 10:17 Cholesterol/HDL Ratio 2.50 % 08/23/20 10:17 Procalcitonin 0.16 ng/mL (<0.15) 08/23/20 10:17 Urine Color Yellow (Yellow) 08/23/20 11:30 Urine Turbidity Clear (Clear) 08/23/20 11:30 Urine pH 5.0 (5.0-7.0) 08/23/20 11:30 Ur Specific [place] 1.025 (1.003-1.030) 08/23/20 11:30 Urine Protein 100 mg/dl mg/dL (Negative) 08/23/20 11:30 Urine Glucose (UA) Neg mg/dL (Negative) 08/23/20 11:30 Urine Ketones Neg mg/dL (Negative) 08/23/20 11:30 Urine Blood Neg (Negative) 08/23/20 11:30 Urine Nitrite Neg (Negative) 08/23/20 11:30 Urine Bilirubin Neg (Negative) 08/23/20 11:30 Urine Urobilinogen 2.0 mg/dL (<2.0) 08/23/20 11:30 Ur Leukocyte Esterase Tr (Negative) 08/23/20 11:30 Urine WBC (Auto) 1.0 /HPF (0.0-6.0) 08/23/20 11:30 Urine RBC (Auto) 3.0 /HPF (0.0-6.0) 08/23/20 11:30 Urine Bacteria (Auto) 1+ /HPF (Negative) 08/23/20 11:30 Urine Mucus Few /HPF 08/23/20 11:30 Coronavirus (PCR) Positive (Negative) A 08/24/20 Unknown Microbiology: Microbiology 08/23/20 10:17 Peripheral/Venous Blood Culture - Preliminary NO GROWTH AFTER 24 HOURS 08/23/20 10:17 Peripheral/Venous Blood Culture - Preliminary NO GROWTH AFTER 24 HOURS Gutierrez/IV: Voiding Method Incontinent IV Catheter Type [Right INT / Saline Lock Forearm] IV Catheter Type [Left INT / Saline Lock Antecubital] Active Medications - Current Medications Current Medications: Generic Name Dose Route Start Last Admin Trade Name Freq PRN Reason Stop Dose Admin Acetaminophen 650 mg 08/23/20 15:00 Tylenol PO Q4H PRN Pain MILD(1-3)/Fever >100.5/PATEL Albuterol 2.5 mg 08/23/20 16:00 Proventil IH Q4HRT PRN Shortness Of Breath Azithromycin 500 mg 08/25/20 10:00 Zithromax PO 08/27/20 10:01 QDAY AMBER Heparin Sodium (Porcine) 5,000 unit 08/23/20 22:00 08/24/20 21:35 Heparin SUB-Q 5,000 unit Q12HR AMBER Administration Ceftriaxone Sodium 2 gm in 100 mls @ 200 mls/hr 08/24/20 16:00 08/24/20 17:05 Rocephin/Ns 2 Gm/100 Ml IV 200 mls/hr Q24H AMBER Administration Protocol REMDESIVIR 100 mg/ Sodium 250 mls @ 500 mls/hr 08/25/20 21:00 Chloride IV 08/28/20 21:29 Q24HR@2100 AMBER Memantine 10 mg 08/23/20 23:00 08/24/20 21:33 Memantine PO 10 mg Q12HR AMBER Administration Methylprednisolone Sodium Succinate 40 mg 08/23/20 14:00 08/25/20 05:50 Solu-Medrol IV 40 mg Q8HR AMBER Administration Ondansetron HCl 4 mg 08/23/20 14:30 Zofran IV Q8H PRN Nausea And Vomiting Quetiapine Fumarate 25 mg 08/24/20 22:00 08/24/20 21:55 Seroquel PO 25 mg QHS AMBER Administration Sodium Chloride 10 ml 08/23/20 22:00 08/24/20 21:33 Sodium Chloride Flush Syringe 10 Ml IV 10 ml BID AMBER Administration Sodium Chloride 10 ml 08/23/20 13:51 Sodium Chloride Flush Syringe 10 Ml IV PRN PRN LINE FLUSH Sodium Chloride 50 ml 08/24/20 21:00 08/24/20 21:35 Nacl 0.9% IV 08/28/20 21:31 50 ml 2130 AMBER Administration Trazodone HCl 50 mg 08/24/20 22:00 08/24/20 21:33 Desyrel PO 50 mg QHS AMBER Administration
[2020-08-25] MEDS: HEPARIN 5,000 UNIT/1 ML VIAL SUB-Q SCH ×2 (11:05→22:45)
--- NOTE | 2020-08-25 11:42 | Consultation ---
History of Present Illness - Reason for Consult Consult date: 08/25/20 COVID-19 Requesting physician: JOSE LUIS NAYLOR - History of Present Illness 80 years old female with history of hyperlipidemia, hypertension, dementia, breast cancer, CVA, admitted on secondary to altered mental status confusion for unknown duration. Patient is not the best historian, daughter gave history of generalized weakness and confusion for over a month. However symptoms worsened last week. Patient has remained bedbound. Her gait is on a stable. Pulse oximetry at home was found to be in the 80s on admission. On arrival, temperature 102.6, O2 sat dropped to 82%, initial WBC 13.1. Lactate 2.2. Ferritin 207. D-dimer 1485. Urinalysis negative. Chest x-ray with cardiomegaly and bilateral infiltrates. CTA shows bilateral pulmonary edema and small bilateral pleural effusions. Review of Systems: reviewed ED and H&P notes. Limited due to PPE conservation strategy Past History Past Medical History: cancer, hypertension, hyperlipidemia, stroke Past Surgical History: Other (Breast surgery) Social history: . denies: smoking, alcohol abuse, prescription drug abus e Family history: hypertension Medications and Allergies Allergies Allergy/AdvReac Type Severity Reaction Status Date / Time No Known Allergies Allergy Verified 08/23/20 09:25 Home Medications Medication Instructions Recorded Confirmed Last Taken Type Amlodipine Besylate [Norvasc] 10 mg PO DAILY 08/23/20 08/23/20 Unknown History Anastrozole 1 mg PO DAILY 08/23/20 08/23/20 Unknown History AtorvaSTATin [Lipitor] 20 mg PO DAILY 08/23/20 08/23/20 Unknown History Clopidogrel [Plavix] 75 mg PO DAILY 08/23/20 08/23/20 Unknown History Fluticasone/Vilanterol [Breo 1 spray IH Q4HR 08/23/20 08/23/20 Unknown History Ellipta 100-25 Mcg INH] Losartan Potassium 25 mg PO DAILY 08/23/20 08/23/20 Unknown History Memantine HCl 10 mg PO BID 08/23/20 08/23/20 Unknown History Metformin HCl [Glucophage Xr] 500 mg PO BID 08/23/20 08/23/20 Unknown History Quetiapine Fumarate [SEROquel XR] 25 mg PO QDAY 08/23/20 08/23/20 Unknown History Tramadol HCl 50 mg PO Q4H PRN 08/23/20 08/23/20 Unknown History Active Meds: Active Medications Acetaminophen (Tylenol) 650 mg PO Q4H PRN PRN Reason: Pain MILD(1-3)/Fever >100.5/PATEL Albuterol (Proventil) 2.5 mg IH Q4HRT PRN PRN Reason: Shortness Of Breath Azithromycin (Zithromax) 500 mg PO QDAY [facility] Stop: 08/27/20 10:01 Heparin Sodium (Porcine) (Heparin) 5,000 unit SUB-Q Q12HR [facility] Last Admin: 08/25/20 11:05 Dose: 5,000 unit Documented by: Ceftriaxone Sodium (Rocephin/Ns 2 Gm/100 Ml) 2 gm in 100 mls @ 200 mls/hr IV Q24H [facility]; Protocol Last Admin: 08/24/20 17:05 Dose: 200 mls/hr Documented by: REMDESIVIR 100 mg/ Sodium (Chloride) 250 mls @ 500 mls/hr IV Q24HR@2100 [facility] Stop: 08/28/20 21:29 Memantine (Memantine) 10 mg PO Q12HR [facility] Last Admin: 08/24/20 21:33 Dose: 10 mg Documented by: Methylprednisolone Sodium Succinate (Solu-Medrol) 40 mg IV Q8HR [facility] Last Admin: 08/25/20 05:50 Dose: 40 mg Documented by: Ondansetron HCl (Zofran) 4 mg IV Q8H PRN PRN Reason: Nausea And Vomiting Quetiapine Fumarate (Seroquel) 25 mg PO QHS [facility] Last Admin: 08/24/20 21:55 Dose: 25 mg Documented by: Sodium Chloride (Sodium Chloride Flush Syringe 10 Ml) 10 ml IV BID [facility] Last Admin: 08/25/20 11:07 Dose: 10 ml Documented by: Sodium Chloride (Sodium Chloride Flush Syringe 10 Ml) 10 ml IV PRN PRN PRN Reason: LINE FLUSH Sodium Chloride (Nacl 0.9%) 50 ml IV 2130 [facility] Stop: 08/28/20 21:31 Last Admin: 08/24/20 21:35 Dose: 50 ml Documented by: Trazodone HCl (Desyrel) 50 mg PO QHS [facility] Last Admin: 08/24/20 21:33 Dose: 50 mg Documented by: Physical Examination - Physical Exam Narrative exam: Physical Exam: reviewed ED and hospitalist notes, limited due to conservation of PPE and decrease risk of transmission. General appearance: limited due to conservation of PPE Eyes: limited due to conservation of PPE HENT: Atraumatic; limited due to conservation of PPE Lungs: limited due to conservation of PPE CV: limited due to conservation of PPE Abdomen: limited due to conservation of PPE Extremities: limited due to conservation of PPE Skin: limited due to conservation of PPE Psych: limited due to conservation of PPE Neuro: limited due to conservation of PPE - Constitutional Vitals: Vital Signs Temp Pulse Resp BP Pulse Ox 97.3 F L 92 H 20 170/84 91 08/25/20 06:07 08/25/20 06:07 08/25/20 06:07 08/25/20 06:07 08/25/20 06:07 Temperature -Last 24 Hours Temperature 97.3 F Temperature 98.0 F Temperature 98.4 F Results - Labs CBC & Chem 7: 08/24/20 05:43 08/24/20 05:43 Labs: Abnormal lab results 08/24/20 08/25/20 08/25/20 Range/Units Unknown 08:05 08:05 D-Dimer 1531.59 H (0-234) ng/mlDDU Ferritin 282.4 H (10.0-200.0) ng/mL Lactate Dehydrogenase (91-180) units/L C-Reactive Protein (0.00-1.30) mg/dL Coronavirus (PCR) Positive A (Negative) 08/25/20 Range/Units 08:05 D-Dimer (0-234) ng/mlDDU Ferritin (10.0-200.0) ng/mL Lactate Dehydrogenase 456 H (91-180) units/L C-Reactive Protein 5.50 H (0.00-1.30) mg/dL Coronavirus (PCR) (Negative) Assessment and Plan Cultures: Blood culture no growth today SARS CoV2 PCR positive Assessment: 80 years old female with history of hyperlipidemia, hypertension, dementia, breast cancer, CVA, admitted on secondary to altered mental status confusion for unknown duration: #Severe sepsis: Present on admission with fever, tachycardia, hypoxia, elevated lactate likely due to bilateral pneumonia. #Severe COVID pneumonia: Elevated D-dimer. CTA shows bilateral infiltrates. #Acute hypoxemic respiratory failure: Secondary to COVID-19 +/-volume overload. Initial O2 sat of 22%. Patient currently on high flow nasal cannula 50%. Recommendations: -Continue dexamethasone 6 mg IV/PO daily for 10 days -Continue remdesivir 5 days -Monitor inflammatory markers - ferritin, Ddimer, CRP, LDH -Stop ceftriaxone and azithromycin, procalcitonin <0.25 ng/mL -Monitor liver function test on Remdesivir -Continue anticoagulation per System Protocol -Prone positioning as possible -Obtain SARS CoV-2 IgG to determine if patient is a candidate for COVID convalescent plasma All laboratory, cultures and imaging were reviewed. Discussed with attending. High risk mortality Will follow America Snider MD [facility] M [phone] O [phone]
[2020-08-25] MEDS: cefTRIAXone/NS 2 GM/100 ML 2 GM/100 ML BAG IV SCH (15:27)
[2020-08-25] MEDS: AZITHROMYCIN 250 MG TAB PO SCH (15:28)
[2020-08-25] MEDS: MEMANTINE 10 MG TAB PO SCH ×2 (15:28→22:46)
[2020-08-25] MEDS: INSULIN LISPRO 100 UNIT/ML VIAL 3 mL SUB-Q SCH ×2 (17:26→22:43)
[2020-08-25] MEDS: SODIUM CHLORIDE 0.9% 50 ML IVPB IV SCH (21:10)
[2020-08-25] MEDS: REMDESIVIR 100 MG in SODIUM CHLORIDE 0.9% 250ML 250 ML IV SCH (22:43)
[2020-08-25] MEDS: traZODone 50 MG TAB PO SCH (22:46)
[2020-08-25] MEDS: QUEtiapine 25 MG TAB PO SCH (22:46)
[2020-08-26] MEDS: methylPREDNISolone Sod Succinate 40 MG/1 ML INJ IV SCH ×3 (05:54→22:49)
[2020-08-26] MEDS: INSULIN LISPRO 100 UNIT/ML VIAL 3 mL SUB-Q SCH ×4 (07:30→22:00)
[2020-08-26] MEDS ORDERED: QUETIAPINE FUMARATE 25 MG PO SCH (10:00)
[2020-08-26] MEDS ORDERED: ANASTROZOLE 1 MG PO SCH (10:00)
[2020-08-26] MEDS ORDERED: amLODIPine 5 MG TAB PO SCH (10:00)
[2020-08-26] MEDS ORDERED: LOSARTAN POTASSIUM 25 MG PO SCH (10:00)
[2020-08-26] MEDS: LOSARTAN 25 MG TAB PO SCH (11:08)
[2020-08-26] MEDS: AZITHROMYCIN 250 MG TAB PO SCH (11:08)
[2020-08-26] MEDS: HEPARIN 5,000 UNIT/1 ML VIAL SUB-Q SCH ×2 (11:08→22:48)
[2020-08-26] MEDS: CLOPIDOGREL 75 MG TAB PO SCH (11:09)
[2020-08-26] MEDS: MEMANTINE 10 MG TAB PO SCH ×2 (11:09→22:49)
[2020-08-26] MEDS: amLODIPine 10 MG TAB PO SCH (11:09)
--- NOTE | 2020-08-26 11:48 | Progress Note ---
Assessment and Plan Assessment and Plan --COVID-19 test positive 08/24/2020 -- Acute respiratory failure with hypoxia Current Visit: Yes Status: Acute Plan to address problem: Secondary to multifocal pneumonia requiring high flow oxygen 35 L /50% FiO2 Titrate and wean as tolerated,Supportive care --COVID-19 multifocal pneumonia Current Visit: Yes Status: Acute Plan to address problem: Empiric antibiotics with Rocephin and Zithromax --Sepsis Current Visit: Yes Status: Acute Plan to address problem: Severe sepsis: Present on admission with fever, tachycardia, hypoxia, elevated lactate likely due to bilateral pneumonia. --PUI suspected COVID-19 virus infection Current Visit: Yes Status: Acute Plan to address problem: Contact and droplet isolation Continue Solu-Medrol, remdesivir Home oxygen evaluation when patient is stable Follow-up inflammatory markers --DVT prophylaxis Current Visit: Yes Status: Acute Plan to address problem: SCD /SQ heparin --Full CODE STATUS Current Visit: Yes Status: Acute Plan to address problem: Plan of care reviewed with the patient and her nurse Follow ID evaluation and recommendations. Patient is critically ill with very poor prognosis Subjective Date of service: 08/26/20 Principal diagnosis: Respiratory failure with hypoxia, bilateral pneumonia Interval history: Brief history; 80-year-old female patient with multiple medical problems was admitted through emergency room with altered level of consciousness at severe weakness Fever and hypoxemia. Patient was PUI placed in isolation tested for mars PCR, positive for COVID-19 on 08/24/2020, consulted ID, started treatment per COVID- 19 protocols. Currently patient is requiring high flow oxygen, ID following, on Solu-Medrol and remdesivir, following inflammatory markers per protocol. Very poor prognosis. Follow ID recommendations I have seen and examined the patient at the bedside today Isolation precautions and PPE protocols strictly followed Patient is critically ill short of breath Afebrile, vital signs reviewed Day #4 08/26/2020 Patient still on high flow oxygen Objective - Constitutional Vitals: Vital Signs - 12hr 08/26/20 08/26/20 08/26/20 00:20 02:00 09:14 Pulse Rate Respiratory 20 Rate Blood Pressure O2 Sat by Pulse 96 95 Oximetry 08/26/20 11:08 Pulse Rate 92 H Respiratory Rate Blood Pressure 150/76 O2 Sat by Pulse Oximetry General appearance: Present: mild distress, well-nourished - EENT Eyes: PERRL, EOM intact ENT: hearing intact, clear oral mucosa Ears: bilateral: normal - Neck Neck: supple, normal ROM - Respiratory Respiratory effort: normal Respiratory: bilateral: CTA, rhonchi (Scattered) - Breasts Breasts: normal - Cardiovascular Heart rate: 78 Rhythm: regular Heart Sounds: Present: S1 & S2. Absent: gallop, rub Extremities: no ischemia, pulses intact, No edema, normal color, Full ROM - Gastrointestinal General gastrointestinal: Present: soft, non-tender, non-distended, normal bowel sounds Rectal Exam: deferred - Genitourinary Female genitourinary: normal - Integumentary Integumentary: clear, warm, dry - Musculoskeletal Musculoskeletal: 1, strength equal bilaterally - Neurologic Neurologic: moves all extremities - Psychiatric Psychiatric: memory intact, appropriate mood/affect, intact judgment & insight - Allied health notes Allied health notes reviewed: nursing, case management - Labs CBC & Chem 7: 08/24/20 05:43 08/24/20 05:43 Labs: Abnormal lab results 08/25/20 08/25/20 08/25/20 Range/Units 13:27 17:06 22:57 POC Glucose 205 H 214 H 169 H (70-105) mg/dL 08/26/20 Range/Units 08:36 POC Glucose 207 H (70-105) mg/dL HEART Score - HEART Score Troponin: Troponin T 0.048 ng/mL (0.00-0.029) H 08/23/20 10:17
[2020-08-26] MEDS: traZODone 50 MG TAB PO SCH (22:49)
[2020-08-26] MEDS: QUEtiapine 25 MG TAB PO SCH (22:49)
[2020-08-26] MEDS: SODIUM CHLORIDE 0.9% 50 ML IVPB IV SCH (22:50)
[2020-08-26] MEDS: REMDESIVIR 100 MG in SODIUM CHLORIDE 0.9% 250ML 250 ML IV SCH (22:50)
[2020-08-27] MEDS ORDERED: hydrALAZINE 20 MG/1 ML INJ IV ONE (02:15)
[2020-08-27] MEDS: methylPREDNISolone Sod Succinate 40 MG/1 ML INJ IV SCH ×3 (05:44→21:58)
[2020-08-27] MEDS: INSULIN LISPRO 100 UNIT/ML VIAL 3 mL SUB-Q SCH ×4 (07:30→23:44)
[2020-08-27] MEDS: HEPARIN 5,000 UNIT/1 ML VIAL SUB-Q SCH ×2 (10:01→21:58)
[2020-08-27] MEDS: LOSARTAN 25 MG TAB PO SCH (10:01)
[2020-08-27] MEDS: MEMANTINE 10 MG TAB PO SCH ×2 (10:01→21:58)
[2020-08-27] MEDS: amLODIPine 10 MG TAB PO SCH (10:01)
[2020-08-27] MEDS: CLOPIDOGREL 75 MG TAB PO SCH (10:01)
--- NOTE | 2020-08-27 15:28 | Progress Note ---
Assessment and Plan Assessment and Plan --COVID-19 test positive 08/24/2020 -- Acute respiratory failure with hypoxia Current Visit: Yes Status: Acute Plan to address problem: Secondary to multifocal pneumonia requiring high flow oxygen 35 L /50% FiO2 telemetry yesterday Titrate and wean as tolerated,Supportive care Today patient is on 3 L nasal cannula oxygen --COVID-19 multifocal pneumonia Current Visit: Yes Status: Acute Plan to address problem: Empiric antibiotics with Rocephin and Zithromax --Sepsis Current Visit: Yes Status: Acute Plan to address problem: Severe sepsis: Present on admission with fever, tachycardia, hypoxia, elevated lactate likely due to bilateral pneumonia. --PUI suspected COVID-19 virus infection Current Visit: Yes Status: Acute Plan to address problem: Contact and droplet isolation Continue Solu-Medrol, remdesivir Home oxygen evaluation when patient is stable Follow-up inflammatory markers --DVT prophylaxis Current Visit: Yes Status: Acute Plan to address problem: SCD /SQ heparin --Full CODE STATUS Current Visit: Yes Status: Acute Plan to address problem: Plan of care reviewed with the patient and her nurse Follow ID evaluation and recommendations. Patient is critically ill with very poor prognosis Weaning of oxygen in progress Subjective Date of service: 08/27/20 Principal diagnosis: Respiratory failure with hypoxia, bilateral pneumonia Interval history: Brief history; 80-year-old female patient with multiple medical problems was admitted through emergency room with altered level of consciousness at severe weakness Fever and hypoxemia. Patient was PUI placed in isolation tested for mars PCR, positive for COVID-19 on 08/24/2020, consulted ID, started treatment per COVID- 19 protocols. Currently patient is requiring high flow oxygen, ID following, on Solu-Medrol and remdesivir, following inflammatory markers per protocol. Very poor prognosis. Follow ID recommendations I have seen and examined the patient at the bedside today Isolation precautions and PPE protocols strictly followed Patient is critically ill short of breath Afebrile, vital signs reviewed Day #4 08/26/2020 Patient still on high flow oxygen Day #5 08/27/2020 Patient on 3 L nasal cannula oxygen which is an improvement from yesterday Objective - Constitutional Vitals: Vital Signs - 12hr 08/27/20 08/27/20 08/27/20 04:57 05:21 09:16 Temperature 98.6 F Pulse Rate Respiratory 20 Rate Blood Pressure 188/83 O2 Sat by Pulse 92 97 Oximetry 08/27/20 08/27/20 10:01 14:45 Temperature Pulse Rate 89 Respiratory Rate Blood Pressure 170/70 O2 Sat by Pulse 97 Oximetry General appearance: Present: mild distress, well-nourished - EENT Eyes: PERRL, EOM intact ENT: hearing intact, clear oral mucosa Ears: bilateral: normal - Neck Neck: supple, normal ROM - Respiratory Respiratory effort: normal Respiratory: bilateral: CTA - Breasts Breasts: normal - Cardiovascular Heart rate: 78 Rhythm: regular Heart Sounds: Present: S1 & S2. Absent: gallop, rub Extremities: no ischemia, pulses intact, No edema, normal color, Full ROM - Gastrointestinal General gastrointestinal: Present: soft, non-tender, non-distended, normal bowel sounds - Genitourinary Female genitourinary: normal - Integumentary Integumentary: clear, warm, dry - Musculoskeletal Musculoskeletal: 1, strength equal bilaterally - Neurologic Neurologic: moves all extremities - Psychiatric Psychiatric: memory intact, appropriate mood/affect, intact judgment & insight - Allied health notes Allied health notes reviewed: nursing, case management - Labs CBC & Chem 7: 08/24/20 05:43 08/24/20 05:43 Labs: Abnormal lab results 08/26/20 08/26/20 08/27/20 Range/Units 17:22 22:56 09:45 POC Glucose 154 H 166 H 251 H (70-105) mg/dL 08/27/20 Range/Units 13:27 POC Glucose 114 H (70-105) mg/dL HEART Score - HEART Score Troponin: Troponin T 0.048 ng/mL (0.00-0.029) H 08/23/20 10:17
[2020-08-27] MEDS: SODIUM CHLORIDE 0.9% 50 ML IVPB IV SCH (21:57)
[2020-08-27] MEDS: REMDESIVIR 100 MG in SODIUM CHLORIDE 0.9% 250ML 250 ML IV SCH (21:57)
[2020-08-27] MEDS: QUEtiapine 25 MG TAB PO SCH (21:58)
[2020-08-27] MEDS: traZODone 50 MG TAB PO SCH (21:58)
[2020-08-28] MEDS: methylPREDNISolone Sod Succinate 40 MG/1 ML INJ IV SCH ×3 (06:22→22:00)
[2020-08-28] MEDS: INSULIN LISPRO 100 UNIT/ML VIAL 3 mL SUB-Q SCH ×4 (08:46→22:28)
[2020-08-28] MEDS: MEMANTINE 10 MG TAB PO SCH ×2 (09:41→22:01)
[2020-08-28] MEDS: LOSARTAN 25 MG TAB PO SCH (09:41)
[2020-08-28] MEDS: CLOPIDOGREL 75 MG TAB PO SCH (09:42)
[2020-08-28] MEDS: amLODIPine 10 MG TAB PO SCH (09:42)
[2020-08-28] MEDS: HEPARIN 5,000 UNIT/1 ML VIAL SUB-Q SCH ×2 (09:42→22:00)
--- NOTE | 2020-08-28 16:07 | Progress Note ---
Assessment and Plan Cultures: Blood culture no growth today SARS CoV2 PCR positive Assessment: 80 years old female with history of hyperlipidemia, hypertension, dementia, breast cancer, CVA, admitted on secondary to altered mental status confusion for unknown duration: #Severe sepsis: Present on admission with fever, tachycardia, hypoxia, elevated lactate likely due to bilateral pneumonia. #Severe COVID pneumonia: Elevated D-dimer. CTA showed bilateral infiltrates. #Acute hypoxemic respiratory failure: remains on oxygen. Recommendations: -Continue steroids x 10 days -Continue remdesivir x 5 days -Monitor inflammatory markers - ferritin, Ddimer, CRP, LDH -Monitor liver function test on Remdesivir -Continue anticoagulation per System Protocol -f/u SARS CoV-2 IgG to determine if patient is a candidate for COVID convalescent plasma Chantel Jansen MD, FACP [facility] O: [phone] F: [phone] Subjective Date of service: 08/28/20 Principal diagnosis: Respiratory failure with hypoxia, bilateral pneumonia Interval history: Afebrile. Remains on oxygen with high requirements. Objective - Exam Narrative Exam: Physical Exam (reviewed in chart due to PPE conservation and minimize risk of transmission) Constitutional: limited due to PPE conservation strategy Head, Ears, Nose: limited due to PPE conservation strategy Eyes: limited due to PPE conservation strategy Neck: limited due to PPE conservation strategy Oral: limited due to PPE conservation strategy Cardiovascular: limited due to PPE conservation strategy Respiratory: limited due to PPE conservation strategy GI: limited due to PPE conservation strategy Musculoskeletal: limited due to PPE conservation strategy Skin: limited due to PPE conservation strategy Hem/Lymphatic: limited due to PPE conservation strategy Psych: limited due to PPE conservation strategy Neurological: limited due to PPE conservation strategy - Constitutional Vitals: Vital Signs Temp Pulse Resp BP Pulse Ox 97.7 F 64 18 129/68 99 08/28/20 15:34 08/28/20 15:34 08/28/20 15:34 08/28/20 15:34 08/28/20 15:34 Temperature -Last 24 Hours Temperature 97.7 F Temperature 97.5 F Temperature 98.7 F - Labs CBC & Chem 7: 08/24/20 05:43 08/24/20 05:43 Labs: Abnormal lab results 08/27/20 08/27/20 08/28/20 Range/Units 17:05 23:55 08:55 POC Glucose 167 H 203 H 200 H (70-105) mg/dL 08/28/20 Range/Units 14:19 POC Glucose 226 H (70-105) mg/dL
[2020-08-28] MEDS: REMDESIVIR 100 MG in SODIUM CHLORIDE 0.9% 250ML 250 ML IV SCH (21:59)
[2020-08-28] MEDS: SODIUM CHLORIDE 0.9% 50 ML IVPB IV SCH (21:59)
[2020-08-28] MEDS: traZODone 50 MG TAB PO SCH (22:00)
[2020-08-28] MEDS: QUEtiapine 25 MG TAB PO SCH (22:02)
[2020-08-29] MEDS: methylPREDNISolone Sod Succinate 40 MG/1 ML INJ IV SCH ×3 (05:27→21:53)
--- NOTE | 2020-08-29 06:38 | Progress Note ---
Assessment and Plan Assessment and Plan --COVID-19 test positive 08/24/2020 -- Acute respiratory failure with hypoxia Current Visit: Yes Status: Acute Plan to address problem: Secondary to multifocal pneumonia requiring high flow oxygen 35 L /50% FiO2 telemetry yesterday Titrate and wean as tolerated,Supportive care Today patient is on 3 L nasal cannula oxygen --COVID-19 multifocal pneumonia Current Visit: Yes Status: Acute Plan to address problem: ID recommendations appreciated Patient on IV methylprednisone in place of IV Decadron Patient got remdesivir only on the We will discuss with ID and restart remdesivir --Sepsis Current Visit: Yes Status: Acute Plan to address problem: Severe sepsis: Present on admission with fever, tachycardia, hypoxia, elevated lactate likely due to bilateral pneumonia. --DVT prophylaxis Current Visit: Yes Status: Acute Plan to address problem: SCD /SQ heparin --Full CODE STATUS Current Visit: Yes Status: Acute Plan to address problem: Plan of care reviewed with the patient and her nurse Follow ID evaluation and recommendations. Weaning of oxygen in progress Subjective Date of service: 08/28/20 Principal diagnosis: Respiratory failure with hypoxia, bilateral pneumonia Interval history: Brief history; 80-year-old female patient with multiple medical problems was admitted through emergency room with altered level of consciousness at severe weakness Fever and hypoxemia. Patient was PUI placed in isolation tested for mars PCR, positive for COVID-19 on 08/24/2020, consulted ID, started treatment per COVID- 19 protocols. Currently patient is requiring high flow oxygen, ID following, on Solu-Medrol and remdesivir, following inflammatory markers per protocol. Very poor prognosis. Follow ID recommendations Isolation precautions and PPE protocols strictly followed Patient is critically ill short of breath Afebrile, vital signs reviewed Day #4 08/26/2020 Patient still on high flow oxygen Day #5 08/27/2020 Patient on 3 L nasal cannula oxygen which is an improvement from yesterday Day #6 08/28/2020 Patient on 3 L nasal cannula oxygen Objective - Constitutional Vitals: Vital Signs - 12hr 08/28/20 08/28/20 08/28/20 19:27 22:55 23:15 Temperature 98.4 F 97.8 F Pulse Rate 85 83 Respiratory 20 Rate Blood Pressure 145/74 Blood Pressure 141/67 [Left] O2 Sat by Pulse 96 90 99 Oximetry 08/29/20 04:19 Temperature 97.7 F Pulse Rate 59 L Respiratory 18 Rate Blood Pressure 142/67 Blood Pressure [Left] O2 Sat by Pulse 98 Oximetry General appearance: Present: no acute distress, well-nourished - EENT Eyes: PERRL, EOM intact ENT: hearing intact, clear oral mucosa Ears: bilateral: normal - Neck Neck: supple, normal ROM - Respiratory Respiratory effort: normal Respiratory: bilateral: CTA - Breasts Breasts: normal - Cardiovascular Rhythm: regular Heart Sounds: Present: S1 & S2. Absent: gallop, rub Extremities: pulses intact, No edema, normal color, Full ROM - Gastrointestinal General gastrointestinal: Present: soft, non-tender, non-distended, normal bowel sounds - Genitourinary Female genitourinary: normal - Integumentary Integumentary: clear, warm, dry - Musculoskeletal Musculoskeletal: 1, strength equal bilaterally - Neurologic Neurologic: moves all extremities - Psychiatric Psychiatric: memory intact, appropriate mood/affect, intact judgment & insight - Labs CBC & Chem 7: 08/24/20 05:43 08/24/20 05:43 Labs: Abnormal lab results 08/28/20 08/28/20 08/28/20 Range/Units 08:55 14:19 18:29 POC Glucose 200 H 226 H (70-105) mg/dL SARS-CoV-2 IgG Ab Reactive A (NonReactive) 08/28/20 08/28/20 Range/Units 19:49 22:42 POC Glucose 283 H 202 H (70-105) mg/dL SARS-CoV-2 IgG Ab (NonReactive) HEART Score - HEART Score Troponin: Troponin T 0.048 ng/mL (0.00-0.029) H 08/23/20 10:17
[2020-08-29] MEDS: INSULIN LISPRO 100 UNIT/ML VIAL 3 mL SUB-Q SCH ×4 (08:28→22:49)
[2020-08-29] MEDS: LOSARTAN 25 MG TAB PO SCH (10:05)
[2020-08-29] MEDS: CLOPIDOGREL 75 MG TAB PO SCH (10:05)
[2020-08-29] MEDS: amLODIPine 10 MG TAB PO SCH (10:07)
[2020-08-29] MEDS: MEMANTINE 10 MG TAB PO SCH ×2 (10:07→21:51)
[2020-08-29] MEDS: HEPARIN 5,000 UNIT/1 ML VIAL SUB-Q SCH ×2 (10:09→21:52)
--- NOTE | 2020-08-29 15:35 | Progress Note ---
Assessment and Plan Cultures: Blood culture no growth today SARS CoV2 PCR positive Assessment: 80 years old female with history of hyperlipidemia, hypertension, dementia, breast cancer, CVA, admitted on secondary to altered mental status confusion for unknown duration: #Severe sepsis: Present on admission with fever, tachycardia, hypoxia, elevated lactate likely due to bilateral pneumonia. #Severe COVID pneumonia: Elevated D-dimer. CTA showed bilateral infiltrates. SARS CoV-2 IgG is positive, not a candidate for COVID convalescent plasma. Completed Remdesivir. #Acute hypoxemic respiratory failure: remains on oxygen. Recommendations: -Continue steroids x 10 days -Completed remdesivir -Monitor inflammatory markers - ferritin, Ddimer, CRP, LDH -Continue anticoagulation per System Protocol Chantel Jansen MD, FACP [facility] O: [phone] F: [phone] Subjective Date of service: 08/29/20 Principal diagnosis: Respiratory failure with hypoxia, bilateral pneumonia Interval history: Afebrile. Remains on oxygen with high requirements Objective - Exam Narrative Exam: Physical Exam (reviewed in chart due to PPE conservation and minimize risk of transmission) Constitutional: limited due to PPE conservation strategy Head, Ears, Nose: limited due to PPE conservation strategy Eyes: limited due to PPE conservation strategy Neck: limited due to PPE conservation strategy Oral: limited due to PPE conservation strategy Cardiovascular: limited due to PPE conservation strategy Respiratory: limited due to PPE conservation strategy GI: limited due to PPE conservation strategy Musculoskeletal: limited due to PPE conservation strategy Skin: limited due to PPE conservation strategy Hem/Lymphatic: limited due to PPE conservation strategy Psych: limited due to PPE conservation strategy Neurological: limited due to PPE conservation strategy - Constitutional Vitals: Vital Signs Temp Pulse Resp BP Pulse Ox 97.8 F 69 18 141/68 99 08/29/20 12:23 08/29/20 12:23 08/29/20 12:23 08/29/20 12:23 08/29/20 12:23 Temperature -Last 24 Hours Temperature 97.8 F Temperature 97.7 F Temperature 97.8 F Temperature 98.4 F Temperature 97.7 F - Labs CBC & Chem 7: 08/24/20 05:43 08/24/20 05:43 Labs: Abnormal lab results 08/28/20 08/28/20 08/28/20 Range/Units 18:29 19:49 22:42 POC Glucose 283 H 202 H (70-105) mg/dL SARS-CoV-2 IgG Ab Reactive A (NonReactive) 08/29/20 08/29/20 Range/Units 08:13 11:49 POC Glucose 203 H 302 H (70-105) mg/dL SARS-CoV-2 IgG Ab (NonReactive)
[2020-08-29] MEDS: traZODone 50 MG TAB PO SCH (21:52)
[2020-08-29] MEDS: QUEtiapine 25 MG TAB PO SCH (21:52)
[2020-08-30] MEDS: methylPREDNISolone Sod Succinate 40 MG/1 ML INJ IV SCH ×3 (05:19→22:04)
[2020-08-30] MEDS: INSULIN LISPRO 100 UNIT/ML VIAL 3 mL SUB-Q SCH ×4 (07:04→22:00)
[2020-08-30] MEDS: MEMANTINE 10 MG TAB PO SCH ×2 (11:03→22:04)
[2020-08-30] MEDS: amLODIPine 10 MG TAB PO SCH (11:03)
[2020-08-30] MEDS: CLOPIDOGREL 75 MG TAB PO SCH (11:03)
[2020-08-30] MEDS: LOSARTAN 25 MG TAB PO SCH (11:06)
[2020-08-30] MEDS: HEPARIN 5,000 UNIT/1 ML VIAL SUB-Q SCH ×2 (11:06→22:03)
--- NOTE | 2020-08-30 14:13 | Progress Note ---
Assessment and Plan Cultures: Blood culture no growth today SARS CoV2 PCR positive Assessment: 80 years old female with history of hyperlipidemia, hypertension, dementia, breast cancer, CVA, admitted on secondary to altered mental status confusion for unknown duration: #Severe sepsis: Present on admission with fever, tachycardia, hypoxia, elevated lactate likely due to bilateral pneumonia. #Severe COVID pneumonia: Elevated D-dimer. CTA showed bilateral infiltrates. SARS CoV-2 IgG is positive, not a candidate for COVID convalescent plasma. Completed Remdesivir. #Acute hypoxemic respiratory failure: remains on oxygen. Recommendations: -Continue steroids x 10 days -Monitor inflammatory markers - ferritin, Ddimer, CRP, LDH -Continue anticoagulation per System Protocol -supportive care with oxygen weaning Chantel Jansen MD, FACP [facility] ([facility]) O: [phone] F: [phone] Subjective Date of service: 08/30/20 Principal diagnosis: Respiratory failure with hypoxia, bilateral pneumonia Interval history: Afebrile. Remains on oxygen but being weaned. Confused. Objective - Exam Narrative Exam: Physical Exam (reviewed in chart due to PPE conservation and minimize risk of transmission) Constitutional: limited due to PPE conservation strategy Head, Ears, Nose: limited due to PPE conservation strategy Eyes: limited due to PPE conservation strategy Neck: limited due to PPE conservation strategy Oral: limited due to PPE conservation strategy Cardiovascular: limited due to PPE conservation strategy Respiratory: limited due to PPE conservation strategy GI: limited due to PPE conservation strategy Musculoskeletal: limited due to PPE conservation strategy Skin: limited due to PPE conservation strategy Hem/Lymphatic: limited due to PPE conservation strategy Psych: limited due to PPE conservation strategy Neurological: limited due to PPE conservation strategy - Constitutional Vitals: Vital Signs Temp Pulse Resp BP Pulse Ox 97.8 F 79 20 144/70 92 08/30/20 05:01 08/30/20 05:01 08/30/20 05:01 08/30/20 05:01 08/30/20 05:01 Temperature -Last 24 Hours Temperature 97.8 F - Labs CBC & Chem 7: 08/24/20 05:43 08/24/20 05:43 Labs: Abnormal lab results 08/29/20 08/29/20 08/30/20 Range/Units 17:14 22:33 09:14 POC Glucose 213 H 192 H 160 H (70-105) mg/dL 08/30/20 Range/Units 12:31 POC Glucose 177 H (70-105) mg/dL
--- NOTE | 2020-08-30 18:48 | Progress Note ---
Assessment and Plan Assessment and Plan --COVID-19 test positive 08/24/2020 -- Acute respiratory failure with hypoxia Current Visit: Yes Status: Acute Plan to address problem: Secondary to multifocal pneumonia requiring high flow oxygen 35 L /50% FiO2 telemetry yesterday Titrate and wean as tolerated,Supportive care Today patient is on 4 L nasal cannula oxygen --COVID-19 multifocal pneumonia Current Visit: Yes Status: Acute Plan to address problem: ID recommendations appreciated Patient on IV methylprednisone in place of IV Decadron --Sepsis Current Visit: Yes Status: Acute Plan to address problem: Severe sepsis: Present on admission with fever, tachycardia, hypoxia, elevated lactate likely due to bilateral pneumonia. --DVT prophylaxis Current Visit: Yes Status: Acute Plan to address problem: SCD /SQ heparin --Full CODE STATUS Current Visit: Yes Status: Acute Plan to address problem: Plan of care reviewed with the patient and her nurse Follow ID evaluation and recommendations. Weaning of oxygen in progress Subjective Date of service: 08/30/20 Principal diagnosis: Respiratory failure with hypoxia, bilateral pneumonia Interval history: Brief history; 80-year-old female patient with multiple medical problems was admitted through emergency room with altered level of consciousness at severe weakness Fever and hypoxemia. Patient was PUI placed in isolation tested for mars PCR, positive for COVID-19 on 08/24/2020, consulted ID, started treatment per COVID- 19 protocols. Currently patient is requiring high flow oxygen, ID following, on Solu-Medrol and remdesivir, following inflammatory markers per protocol. Very poor prognosis. Follow ID recommendations Isolation precautions and PPE protocols strictly followed Patient is critically ill short of breath Afebrile, vital signs reviewed Day #4 08/26/2020 Patient still on high flow oxygen Day #5 08/27/2020 Patient on 3 L nasal cannula oxygen which is an improvement from yesterday Day #6 08/28/2020 Patient on 3 L nasal cannula oxygen Day #7 08/29/2020 Patient on high flow oxygen overnight Day #8 08/30/2020 Patient on 4 L nasal cannula oxygen Objective - Constitutional Vitals: Vital Signs - 12hr 08/30/20 08/30/20 10:20 12:07 Temperature 98.4 F Pulse Rate 78 Respiratory 20 Rate Blood Pressure 148/78 O2 Sat by Pulse 94 81 L Oximetry General appearance: Present: no acute distress, well-nourished - EENT Eyes: PERRL, EOM intact ENT: hearing intact, clear oral mucosa Ears: bilateral: normal - Neck Neck: supple, normal ROM - Respiratory Respiratory effort: normal Respiratory: bilateral: CTA, rhonchi (Scattered) - Breasts Breasts: normal - Cardiovascular Heart rate: 78 Rhythm: regular Heart Sounds: Present: S1 & S2. Absent: gallop, rub Extremities: pulses intact, No edema, normal color, Full ROM - Gastrointestinal General gastrointestinal: Present: soft, non-tender, non-distended, normal bowel sounds - Genitourinary Female genitourinary: normal - Integumentary Integumentary: clear, warm, dry - Musculoskeletal Musculoskeletal: 1, strength equal bilaterally - Neurologic Neurologic: moves all extremities - Psychiatric Psychiatric: memory intact, appropriate mood/affect, intact judgment & insight - Labs CBC & Chem 7: 08/24/20 05:43 08/24/20 05:43 Labs: Abnormal lab results 08/29/20 08/30/20 08/30/20 Range/Units 22:33 09:14 12:31 POC Glucose 192 H 160 H 177 H (70-105) mg/dL HEART Score - HEART Score Troponin: Troponin T 0.048 ng/mL (0.00-0.029) H 08/23/20 10:17
[2020-08-30] MEDS: QUEtiapine 25 MG TAB PO SCH (22:04)
[2020-08-30] MEDS: traZODone 50 MG TAB PO SCH (22:04)
[2020-08-31] MEDS: methylPREDNISolone Sod Succinate 40 MG/1 ML INJ IV SCH ×3 (06:16→21:16)
[2020-08-31] MEDS: LOSARTAN 25 MG TAB PO SCH (09:10)
[2020-08-31] MEDS: amLODIPine 10 MG TAB PO SCH (09:10)
[2020-08-31] MEDS: CLOPIDOGREL 75 MG TAB PO SCH (09:10)
[2020-08-31] MEDS: MEMANTINE 10 MG TAB PO SCH ×2 (09:10→21:16)
[2020-08-31] MEDS: HEPARIN 5,000 UNIT/1 ML VIAL SUB-Q SCH ×2 (09:11→21:16)
[2020-08-31] MEDS: INSULIN LISPRO 100 UNIT/ML VIAL 3 mL SUB-Q SCH ×3 (09:14→19:18)
--- NOTE | 2020-08-31 15:14 | Progress Note ---
Assessment and Plan Cultures: Blood culture no growth today SARS CoV2 PCR positive Assessment: 80 years old female with history of hyperlipidemia, hypertension, dementia, breast cancer, CVA, admitted on secondary to altered mental status confusion for unknown duration: #Severe sepsis: Present on admission with fever, tachycardia, hypoxia, elevated lactate likely due to bilateral pneumonia. #Severe COVID pneumonia: Elevated D-dimer. CTA showed bilateral infiltrates. SARS CoV-2 IgG is positive, not a candidate for COVID convalescent plasma. Completed Remdesivir. #Acute hypoxemic respiratory failure: remains on oxygen. Recommendations: -Continue steroids x 10 days (on Solumedrol, may need taper) -Monitor inflammatory markers - ferritin, Ddimer, CRP, LDH -Continue anticoagulation per System Protocol Remains stable from ID standpoint. Will sign off. Please call with questions. Chantel Jansen MD, FACP [facility] ([facility]) O: [phone] F: [phone] Subjective Date of service: 08/31/20 Principal diagnosis: Respiratory failure with hypoxia, bilateral pneumonia Interval history: Afebrile. Remains on oxygen but being weaned. Objective - Exam Narrative Exam: Physical Exam (reviewed in chart due to PPE conservation and minimize risk of transmission) Constitutional: limited due to PPE conservation strategy Head, Ears, Nose: limited due to PPE conservation strategy Eyes: limited due to PPE conservation strategy Neck: limited due to PPE conservation strategy Oral: limited due to PPE conservation strategy Cardiovascular: limited due to PPE conservation strategy Respiratory: limited due to PPE conservation strategy GI: limited due to PPE conservation strategy Musculoskeletal: limited due to PPE conservation strategy Skin: limited due to PPE conservation strategy Hem/Lymphatic: limited due to PPE conservation strategy Psych: limited due to PPE conservation strategy Neurological: limited due to PPE conservation strategy - Constitutional Vitals: Vital Signs Temp Pulse Resp BP Pulse Ox 97.9 F 57 L 16 132/59 90 08/31/20 13:00 08/31/20 13:00 08/31/20 13:00 08/31/20 13:00 08/30/20 21:58 Temperature -Last 24 Hours Temperature 97.9 F Temperature 99.0 F - Labs CBC & Chem 7: 08/24/20 05:43 08/24/20 05:43 Labs: Abnormal lab results 08/30/20 08/31/20 Range/Units 22:14 12:32 POC Glucose 176 H 208 H (70-105) mg/dL
--- NOTE | 2020-08-31 19:53 | Progress Note ---
Assessment and Plan Assessment and Plan --COVID-19 test positive 08/24/2020 -- Acute respiratory failure with hypoxia Current Visit: Yes Status: Acute Plan to address problem: Secondary to multifocal pneumonia requiring high flow oxygen 35 L /50% FiO2 telemetry yesterday Titrate and wean as tolerated,Supportive care Today patient is on 3 L nasal cannula oxygen --COVID-19 multifocal pneumonia Current Visit: Yes Status: Acute Plan to address problem: ID recommendations appreciated Patient on IV methylprednisone in place of IV Decadron --Sepsis Current Visit: Yes Status: Acute Plan to address problem: Severe sepsis: Present on admission with fever, tachycardia, hypoxia, elevated lactate likely due to bilateral pneumonia. --DVT prophylaxis Current Visit: Yes Status: Acute Plan to address problem: SCD /SQ heparin --Full CODE STATUS Current Visit: Yes Status: Acute Plan to address problem: Plan of care reviewed with the patient and her nurse Follow ID evaluation and recommendations. Weaning of oxygen in progress Possible discharge tomorrow Subjective Date of service: 08/31/20 Principal diagnosis: Respiratory failure with hypoxia, bilateral pneumonia Interval history: Brief history; 80-year-old female patient with multiple medical problems was admitted through emergency room with altered level of consciousness at severe weakness Fever and hypoxemia. Patient was PUI placed in isolation tested for mars PCR, positive for COVID-19 on 08/24/2020, consulted ID, started treatment per COVID- 19 protocols. Currently patient is requiring high flow oxygen, ID following, on Solu-Medrol and remdesivir, following inflammatory markers per protocol. Very poor prognosis. Follow ID recommendations Isolation precautions and PPE protocols strictly followed Patient is critically ill short of breath Afebrile, vital signs reviewed Day #4 08/26/2020 Patient still on high flow oxygen Day #5 08/27/2020 Patient on 3 L nasal cannula oxygen which is an improvement from yesterday Day #6 08/28/2020 Patient on 3 L nasal cannula oxygen Day #7 08/29/2020 Patient on high flow oxygen overnight Day #8 08/30/2020 Patient on 4 L nasal cannula oxygen Day #9 08/31/2020 Patient on 3 L nasal cannula oxygen Probable discharge tomorrow Objective - Constitutional Vitals: Vital Signs - 12hr 08/31/20 08/31/20 08/31/20 09:10 09:50 13:00 Temperature 97.9 F Pulse Rate 57 L Respiratory 16 Rate Blood Pressure 145/66 Blood Pressure 132/59 [Left] O2 Sat by Pulse 93 Oximetry 08/31/20 18:30 Temperature 98.8 F Pulse Rate 64 Respiratory 18 Rate Blood Pressure Blood Pressure 133/67 [Left] O2 Sat by Pulse Oximetry General appearance: Present: no acute distress, well-nourished - EENT Eyes: PERRL, EOM intact ENT: hearing intact, clear oral mucosa Ears: bilateral: normal - Neck Neck: supple, normal ROM - Respiratory Respiratory effort: normal Respiratory: bilateral: CTA - Breasts Breasts: normal - Cardiovascular Rhythm: regular Heart Sounds: Present: S1 & S2. Absent: gallop, rub Extremities: pulses intact, No edema, normal color, Full ROM - Gastrointestinal General gastrointestinal: Present: soft, non-tender, non-distended, normal bowel sounds - Genitourinary Female genitourinary: normal - Integumentary Integumentary: clear, warm, dry - Musculoskeletal Musculoskeletal: 1, strength equal bilaterally - Neurologic Neurologic: moves all extremities - Psychiatric Psychiatric: memory intact, appropriate mood/affect, intact judgment & insight - Labs CBC & Chem 7: 08/24/20 05:43 08/24/20 05:43 Labs: Abnormal lab results 08/30/20 08/31/20 08/31/20 Range/Units 22:14 12:32 17:48 POC Glucose 176 H 208 H 244 H (70-105) mg/dL HEART Score - HEART Score Troponin: Troponin T 0.048 ng/mL (0.00-0.029) H 08/23/20 10:17
--- NOTE | 2020-08-31 19:56 | Discharge Summary ---
Providers - Providers Date of Admission: 08/23/20 13:51 Date of discharge: 09/01/20 Attending physician: TAZ MUÑOZ 08/24/20 18:01 Consult to Physician [CONS] Routine Comment: Consulting Provider: DIAAN OWENS Physician Instructions: Reason For Exam: COVID-19 test positive 08/31/20 09:07 Physical Therapy Evaluation and Treat [CONS] Stat Comment: Reason For Exam: To evaluate mobility status Primary care physician: MECHANICAL RELIABILITY ENGINEER Hospitalization Condition: Stable Hospital course: Subjective Date of service: 09/01/20 Principal diagnosis: Respiratory failure with hypoxia, bilateral pneumonia Interval history: Brief history; 80-year-old female patient with multiple medical problems was admitted through emergency room with altered level of consciousness at severe weakness Fever and hypoxemia. Patient was PUI placed in isolation tested for mars PCR, positive for COVID-19 on 08/24/2020, consulted ID, started treatment per COVID- 19 protocols. Currently patient is requiring high flow oxygen, ID following, on Solu-Medrol and remdesivir, following inflammatory markers per protocol. Very poor prognosis. Follow ID recommendations Isolation precautions and PPE protocols strictly followed Patient is critically ill short of breath Afebrile, vital signs reviewed Day #4 08/26/2020 Patient still on high flow oxygen Day #5 08/27/2020 Patient on 3 L nasal cannula oxygen which is an improvement from yesterday Day #6 08/28/2020 Patient on 3 L nasal cannula oxygen Day #7 08/29/2020 Patient on high flow oxygen overnight Day #8 08/30/2020 Patient on 4 L nasal cannula oxygen Day #9 08/31/2020 Patient on 3 L nasal cannula oxygen Probable discharge tomorrow 09/01/2020 Home oxygen arranged and patient discharged on 3 L nasal cannula oxyge + Assessment and Plan --COVID-19 test positive 08/24/2020 -- Acute respiratory failure with hypoxia Current Visit: Yes Status: Acute Plan to address problem: Secondary to multifocal pneumonia requiring high flow oxygen 35 L /50% FiO2 telemetry yesterday Titrate and wean as tolerated,Supportive care Today patient is on 3 L nasal cannula oxygen --COVID-19 multifocal pneumonia Current Visit: Yes Status: Acute Plan to address problem: ID recommendations appreciated Patient on IV methylprednisone in place of IV Decadron --Sepsis Current Visit: Yes Status: Acute Plan to address problem: Severe sepsis: Present on admission with fever, tachycardia, hypoxia, elevated lactate likely due to bilateral pneumonia. Patient discharged on 3 L nasal cannula home oxygen Patient doing well Disposition: DC-01 TO HOME OR SELFCARE - Discharge Diagnoses (1) Acute respiratory failure with hypoxia Status: Acute (2) Multifocal pneumonia Status: Acute (3) Suspected COVID-19 virus infection Status: Acute (4) Systemic inflammatory response syndrome Status: Acute Core Measure Documentation - Palliative Care Palliative Care/ Comfort Measures: Not Applicable - Core Measures Any of the following diagnoses?: none Exam - Constitutional Vitals: Temp Pulse Resp BP Pulse Ox 98.8 F 64 18 133/67 93 08/31/20 18:30 08/31/20 18:30 08/31/20 18:30 08/31/20 18:30 08/31/20 09:50 General appearance: Present: no acute distress, well-nourished - EENT Eyes: Present: PERRL ENT: hearing intact, clear oral mucosa - Neck Neck: Present: supple, normal ROM - Respiratory Respiratory effort: normal Respiratory: bilateral: CTA - Cardiovascular Heart Sounds: Present: S1 & S2. Absent: rub, click - Extremities Extremities: pulses symmetrical, No edema Peripheral Pulses: within normal limits - Abdominal General gastrointestinal: Present: soft, non-tender, non-distended, normal bowel sounds Female genitourinary: Present: normal - Integumentary Integumentary: Present: clear, warm, dry - Musculoskeletal Musculoskeletal: gait normal, strength equal bilaterally - Psychiatric Psychiatric: appropriate mood/affect, intact judgment & insight - Neurologic Neurologic: CNII-XII intact, moves all extremities Plan Activity: no restrictions Diet: low salt Follow up with: PRIMARY MD ANDREW [Primary Care Provider] - 7 Days DIANA OWENS MD [Staff Physician] - 7 Days Prescriptions: RX: Anastrozole 1 mg PO DAILY #30 RX: Fluticasone/Vilanterol [Breo Ellipta 100-25 Mcg INH] 1 spray IH Q4HR #1 RX: Metformin HCl [Glucophage Xr] 500 mg PO BID #60 RX: AtorvaSTATin [Lipitor] 20 mg PO DAILY #30 RX: Memantine HCl 10 mg PO BID #60 RX: Amlodipine Besylate [Norvasc] 10 mg PO DAILY #30 RX: Clopidogrel [Plavix] 75 mg PO DAILY #30 RX: Quetiapine Fumarate [SEROquel XR] 25 mg PO QDAY #30 RX: Tramadol HCl 50 mg PO BID PRN #20 PRN Reason: Pain , Severe (7-10)
[2020-08-31] MEDS: traZODone 50 MG TAB PO SCH (21:16)
[2020-08-31] MEDS: QUEtiapine 25 MG TAB PO SCH (21:16)
[2020-09-01] MEDS: INSULIN LISPRO 100 UNIT/ML VIAL 3 mL SUB-Q SCH ×3 (00:30→11:31)
[2020-09-01] MEDS: methylPREDNISolone Sod Succinate 40 MG/1 ML INJ IV SCH ×2 (05:20→13:32)
[2020-09-01] MEDS: amLODIPine 10 MG TAB PO SCH (11:10)
[2020-09-01] MEDS: CLOPIDOGREL 75 MG TAB PO SCH (11:12)
[2020-09-01] MEDS: LOSARTAN 25 MG TAB PO SCH (11:12)
[2020-09-01] MEDS: MEMANTINE 10 MG TAB PO SCH (11:12)
[2020-09-01] MEDS: HEPARIN 5,000 UNIT/1 ML VIAL SUB-Q SCH (11:13)
[2020-09-01 16:16] VITALS: BP 136/47
== END 2020-09-01 19:00 | disposition home or self-care (01) | DRG 871 ==
LOC: ED 08:54 → 3A 13:51
PROVIDERS: ADMIT Internal Medicine; ATTEND Internal Medicine
PROC: XW033E5 Introduction of Remdesivir Anti-infective into Peripheral Vein, Percutaneous Approach, New Technology Group 5 (ICD-10-PCS; principal; 2020-08-24)
DX: A41.89 Other specified sepsis (principal); U07.1 COVID-19; J96.01 Acute respiratory failure with hypoxia; J12.89 Other viral pneumonia; R65.20 Severe sepsis without septic shock; I10 Essential (primary) hypertension; M19.90 Unspecified osteoarthritis, unspecified site; F03.90 Unspecified dementia, unspecified severity, without behavioral disturbance, psychotic disturbance, mood disturbance, and anxiety; Z86.73 Personal history of transient ischemic attack (TIA), and cerebral infarction without residual deficits; Z85.3 Personal history of malignant neoplasm of breast; Z82.49 Family history of ischemic heart disease and other diseases of the circulatory system; Z79.899 Other long term (current) drug therapy
CPT/HCPCS: 36415; 70450; 71045; 71250; 72125; 80053; 80061; 81001; 82140; 82728; 82962; 83615; 83880; 84145; 84484; 85025; 85379; 86140; 87040; 87116; 94760; 96361; 96365; 96367; 96368; 96375; 96376; G0378; A9270-GY; J0360; J0456; J0696; J1100; J1644; J2920; J2930; J7050; U0003

== ENCOUNTER 2020-09-23 02:04 | Emergency (ER) | payer MEDICARE ==
[2020-09-23] MEDS ORDERED: EPINEPHrine 1 MG/10 ML SYRINGE ONE (02:05)
[2020-09-23] MEDS ORDERED: ATROPINE 0.1% (1 MG/10 ML) CARDIAC SYRINGE ONE (02:05)
[2020-09-23] MEDS ORDERED: SODIUM BICARB 8.4% 50 MEQ/50 ML SYRINGE IV ONE (02:05)
--- NOTE | 2020-09-23 02:30 | Emergency Department Report ---
ED CPR HPI - General Chief Complaint: Cardiac Arrest/CPR Stated Complaint: CARDIAC ARREST Time Seen by Provider: 09/23/20 02:04 Source: EMS Mode of arrival: Stretcher Limitations: Altered Mental Status, Physical Limitation - History of Present Illness Initial Comments: Patient is a 80-year-old female that presents emergency room for cardiac arrest. Patient brought in by EMS. EMS report received. Patient was intubated by EMS. ET tube placement verified with bilateral breath sounds. EMS gave the patient 2 rounds of epi and delivered 1 shock for presumed V. fib. Patient downtime is unknown. MD Complaint: found unresponsive -: minute(s) Place: home Bystander CPR Performed: No AED Applied by Bystander/Making Line Worker: No Shock Advised: No Initial Findings in the Field: unresponsive, no respirations, no pulse ROSC in the Field: No Associated Injuries: No Treatments Prior to Arrival: intubation, BMV, chest compressions, defribrillated shocks #, epinephrine mgs # - Related Data Home Medications Medication Instructions Recorded Confirmed Last Taken Losartan Potassium 25 mg PO DAILY 08/23/20 08/23/20 Unknown Previous Rx's Medication Instructions Recorded Last Taken Type ALBUTEROL NEB's [Proventil 0.083% 2.5 mg IH Q4HRT PRN nebu 09/01/20 Unknown Rx NEBS] Amlodipine Besylate [Norvasc] 10 mg PO DAILY #30 09/01/20 Unknown Rx Anastrozole 1 mg PO DAILY #30 09/01/20 Unknown Rx Anastrozole [Anastrozole] 1 mg PO DAILY 09/01/20 Unknown Rx AtorvaSTATin [Lipitor] 20 mg PO DAILY #30 09/01/20 Unknown Rx Clopidogrel [Plavix] 75 mg PO DAILY #30 09/01/20 Unknown Rx Fluticasone/Vilanterol [Breo 1 spray IH Q4HR #1 09/01/20 Unknown Rx Ellipta 100-25 Mcg INH] Memantine HCl 10 mg PO BID #60 09/01/20 Unknown Rx Metformin HCl [Glucophage Xr] 500 mg PO BID #60 09/01/20 Unknown Rx Quetiapine Fumarate [SEROquel XR] 25 mg PO QDAY #30 09/01/20 Unknown Rx Tramadol HCl 50 mg PO BID PRN #20 09/01/20 Unknown Rx amLODIPine 10 mg PO DAILY tablet 09/01/20 Unknown Rx Allergies Allergy/AdvReac Type Severity Reaction Status Date / Time No Known Allergies Allergy Verified 08/23/20 09:25 ED Review of Systems ROS: Stated complaint: CARDIAC ARREST Other details as noted in HPI Comment: Unobtainable due to pts medical conditions ED Past Medical Hx - Past Medical History Previous Medical History?: Yes Hx Hypertension: Yes (FOR 10 YRS, DR. HAMILTON- PCP) Hx Congestive Heart Failure: No Hx Diabetes: Yes Hx Sickle Cell Disease: No Hx Arthritis: Yes (IN KNEES) Hx Asthma: No Hx COPD: No Hx Dementia: Yes Hx HIV: No - Surgical History Past Surgical History?: Yes Hx Breast Surgery: Yes (LEFT BREAST BX 07/2016) - Family History Family history: no significant - Social History Smoking Status: Never Smoker Substance Use Type: None - Medications Home Medications: Home Medications Medication Instructions Recorded Confirmed Last Taken Type Losartan Potassium 25 mg PO DAILY 08/23/20 08/23/20 Unknown History ALBUTEROL NEB's [Proventil 0.083% 2.5 mg IH Q4HRT PRN nebu 09/01/20 Unknown Rx NEBS] Amlodipine Besylate [Norvasc] 10 mg PO DAILY #30 09/01/20 Unknown Rx Anastrozole 1 mg PO DAILY #30 09/01/20 Unknown Rx Anastrozole [Anastrozole] 1 mg PO DAILY 09/01/20 Unknown Rx AtorvaSTATin [Lipitor] 20 mg PO DAILY #30 09/01/20 Unknown Rx Clopidogrel [Plavix] 75 mg PO DAILY #30 09/01/20 Unknown Rx Fluticasone/Vilanterol [Breo 1 spray IH Q4HR #1 09/01/20 Unknown Rx Ellipta 100-25 Mcg INH] Memantine HCl 10 mg PO BID #60 09/01/20 Unknown Rx Metformin HCl [Glucophage Xr] 500 mg PO BID #60 09/01/20 Unknown Rx Quetiapine Fumarate [SEROquel XR] 25 mg PO QDAY #30 09/01/20 Unknown Rx Tramadol HCl 50 mg PO BID PRN #20 09/01/20 Unknown Rx amLODIPine 10 mg PO DAILY tablet 09/01/20 Unknown Rx ED Physical Exam - General General appearance: other - Head Head exam: Present: atraumatic, normocephalic - Eye Eye exam: Present: other (Pupils are fixed and dilated) - ENT ENT exam: Present: mucous membranes dry - Neck Neck exam: Present: normal inspection - Respiratory Respiratory exam: Present: decreased breath sounds, other (ET tube in place and placement verified with bilateral breath sounds.) - Cardiovascular Cardiovascular Exam: Present: other (No pulse noted) - GI/Abdominal GI/Abdominal exam: Present: soft - Extremities Exam Extremities exam: Present: normal inspection (Except for left lower extremity IO) - Neurological Exam Neurological exam: Present: altered - Skin Skin exam: Present: warm, dry, intact, normal color ED Course - Reevaluation(s) Reevaluation #1: Patient arrived with EMS. Report received from EMS. EMS states patient is already been shocked once, 2 rounds of epi and intubated and has a left lower extremity IO. Patient transferred to our gurney. Placement of the ET tube verified. Compressions were continued. 09/23/20 02:04 Patient had spontaneous return of circulation. Patient will be placed on a nor epi drip in the meantime and an epi drip will be ordered from pharmacy. Patient noted to be bradycardic and the patient was given atropine. See code note. 09/23/20 02:08 Family updated with information. 09/23/20 02:13 Reevaluation #2: Patient went back into a cardiac arrest. No pulse noted. Compressions were resumed. 09/23/20 02:17 Resuscitation efforts were terminated due to no signs of life. Patient had no pulse. Patient had no respiratory motion. Patient asystole on the monitor. Patient had no cardiac motion. See code note. Code ran in accordance with ACLS guidelines. 09/23/20 02:30 Family meeting done. All questions and concerns were addressed with family. 09/23/20 03:12 ED Medical Decision Making - Medical Decision Making Patient is a 80-year-old female that presents emergency room for cardiac arrest. Patient brought in by EMS. EMS placed an IO and intubate the patient. Patient was found down by the family for unknown amount of time. Patient had return of spontaneous circulation and the ER but then went back into a cardiac arrest and resuscitation efforts were terminated due to no signs of life. Multiple rounds of CPR and medications. Multiple medications were given. See code note. Code ran in accordance with ACLS guidelines. - Differential Diagnosis Cardiac arrest, CPR, FL, PE Critical Care Time: Yes Critical care time in (mins) excluding proc time.: 35 Critical care attestation.: If time is entered above; I have spent that time in minutes in the direct care of this critically ill patient, excluding procedure time. Critical Care Time: 35 minutes ED Disposition Clinical Impression: Cardiac arrest Disposition: DC-20 Is pt being admited?: No Does the pt Need Aspirin: No Condition: Undetermined Time of Disposition: 03:14
[2020-09-23] MEDS ORDERED: EPINEPHrine 1 MG/1 ML 8 MG in SODIUM CHLORIDE 0.9% 250ML 242 ML IV ONE (03:00)
== END 2020-09-23 06:00 ==
LOC: ED 02:04
DX: I46.9 Cardiac arrest, cause unspecified (principal)
CPT/HCPCS: 82962; 92950; 99285; J0171; J0461; J7050